=== PATIENT | male | born 1965 | race Caucasian/White ===

== ENCOUNTER 2017-07-26 19:12 | Observation (INO) ==
[~2017-07-26 19:12] MED LIST: Aminoglycoside Consult 1 EACH MC ONE
--- NOTE | 2017-07-26 19:32 | Emergency Department Note ---
Disposition Clinical Impression: Noncompliance with medication regimen Diabetic foot ulcer Qualifiers: Diabetic foot ulcer location: other Diabetes mellitus type: type 2 Laterality: left Non-pressure ulcer stage: unspecified non-pressure ulcer stage Qualified Code(s): E11.621 - Type 2 diabetes mellitus with foot ulcer; L97.529 - Non- pressure chronic ulcer of other part of left foot with unspecified severity; L97.529 - Non-pressure chronic ulcer of other part of left foot with unspecified severity; L97.529 - Non-pressure chronic ulcer of other part of left foot with unspecified severity; L97.529 - Non-pressure chronic ulcer of other part of left foot with unspecified severity Cellulitis Qualifiers: Site of cellulitis: extremity Site of cellulitis of extremity: lower extremity Laterality: left Qualified Code(s): L03.116 - Cellulitis of left lower limb Alcohol intoxication Qualifiers: Complication of substance-induced condition: uncomplicated Qualified Code(s): F10.920 - Alcohol use, unspecified with intoxication, uncomplicated Disposition: Admitted As Inpatient Condition: Good Time of Disposition: 21:03 General Adult HPI - General Chief complaint: ED Extremity Problem,Nontraumatic Stated complaint: Left foot swelling/pain Time Seen by Provider: 07/26/17 19:17 Source: patient Mode of arrival: ambulatory Limitations: no limitations Nursing Notes Reviewed: Yes Vital Signs Reviewed: Yes - History of Present Illness HPI Narrative: 52-year-old male with significant past medical history of hypertension and diabetes presenting to the emergency department with chief complaint of left lower extremity swelling and an open wound. According to the patient he has had this wound on his foot for approximately one month. He has been cleaning it and putting a and D Ointment on it but has not getting any better. Patient states he is a chronic alcoholic and does not take his diabetes medicine or her hypertension medicine. Patient does not remember any specific trauma to the area. Patient does not remember his last tetanus shot. Patient denies fevers, nausea, vomiting, chest pain, shortness of breath. States otherwise feeling fine. Pain Scale: 7 - Related Data Previous Rx's Medication Instructions Recorded Hydrocodone/Acetaminophen [[place] 1 tab PO Q6H PRN #12 tab 05/16/16 5-325 Tablet] Ibuprofen [Motrin] 600 mg PO Q6HR PRN #40 tab MDD 3200 05/16/16 Allergies Allergy/AdvReac Type Severity Reaction Status Date / Time No Known Allergies Allergy Verified 05/16/16 05:12 All systems ED: reviewed and negative except as stated. Constitutional: Denies: fever, chills Eyes: Reports: as per HPI ENT ED: Reports: as per HPI Cardiovascular: Denies: chest pain, palpitations Respiratory: Denies: cough, dyspnea, wheezes Gastrointestinal: Denies: abdominal pain, nausea, vomiting Genitourinary: Reports: as per HPI Musculoskeletal: Reports: as per HPI Integumentary: Reports: other (Ulcer noted over the phone and left inferior aspect of the foot. Callus noted over the right inferior portion of the foot on the left.) Neurological: Reports: as per HPI Psychiatric: Reports: as per HPI Endocrine: Reports: as per HPI Hematological/Lymphatic: Reports: as per HPI Allergic/Immunologic: Reports: as per HPI Past Medical History - Past Medical History Attestation: Yes The following information was validated with the patient. Medical history: Reports: diabetes, hyperlipidemia, hypertension Psychiatric history: Reports: no psych history - Social History Smoking Status: Never smoker Smokeless Tobacco Status: No Alcohol use: Reports: occasionally Drug use: Reports: none Physical Exam - General Limitations: no limitations General appearance: alert, in no apparent distress - Head Head exam: atraumatic, normocephalic, normal inspection - Eye Eye exam: Present: normal appearance - Chest Chest inspection: Present: normal inspection, symmetric chest wall rise. Absent : tenderness - Respiratory Respiratory exam: Present: normal lung sounds bilaterally. Absent: respiratory distress, wheezes - Cardiovascular Cardiovascular exam: Present: regular rate, normal rhythm, normal heart sounds - Abdominal Exam Abdominal exam: Present: soft, Non-Tender. Absent: distention, guarding, rebound - Extremities Exam Extremities exam: Present: normal inspection, full ROM - Neurological Exam Neurological exam: Present: alert, oriented X3 - Psychiatric Psychiatric exam: Present: normal affect, normal mood - Skin Skin exam: Present: other (Ulcer noted over the base of the fifth metatarsal on the inferior aspect of the left foot. It is clean but deep. No discharge or crepitus noted.) Course Course Narrative: 52-year-old male presenting to the emergency department with chief complaint of diabetic ulcer on the left foot. We will obtain basic lab work along with a wound culture and blood cultures. We will x-ray the foot as well to determine the extent of this ulcer. Disposition pending lab results. - Reevaluation(s) Reevaluation #1: X-ray shows no concern for osteomyelitis at this time. Basic lab work within normal limits. We will admit the patient at this time due to multiple comorbid conditions including uncontrolled diabetes and his chronic alcohol use. Concern for poor wound healing as an outpatient. Call to hospitalist has been sent. Time: 20:47 Reevaluation #2: Dr. Brown accepts the patient and would like 2 g of ancef started. Time: 21:00 Vital Signs Temperature 97.6 F 07/26/17 19:13 Pulse Rate 81 07/26/17 19:13 Respiratory Rate 20 07/26/17 19:13 Blood Pressure 169/105 07/26/17 19:13 O2 Sat by Pulse Oximetry 99 07/26/17 19:13 Temperature 97.6 F 07/26/17 19:13 Pulse Rate 81 07/26/17 19:13 Respiratory Rate 20 07/26/17 19:13 Blood Pressure 169/105 07/26/17 19:13 O2 Sat by Pulse Oximetry 99 07/26/17 19:13 Oxygen Delivery Oxygen Delivery Room Air Medical Decision Making - Lab Data Lab results reviewed: Yes I reviewed the patient's lab results. Result diagrams: 07/26/17 19:42 07/26/17 19:42 Lab Results 07/26/17 07/26/17 07/26/17 Range/Units 19:41 19:42 19:42 WBC 5.6 (4.3-11.1) K/mcL RBC 4.66 (4.19-5.50) M/mcL Hgb 14.7 (12.9-16.9) g/dL Hct 42.5 (37.5-50.1) % MCV 91.2 (83.0-100.0) fL MCH 31.5 (28.0-33.3) pg MCHC 34.6 (31.6-35.5) g/dL RDW 11.1 L (11.5-14.5) % Plt Count 204 (140-400) K/mcL MPV 9.1 L (9.4-12.4) fL Immature Gran % 0.2 (0-4) % Seg Neutrophils % 41.8 % Lymphocytes % 45.5 % Monocytes % 9.1 % Eosinophils % 3.0 % Basophils % 0.4 % Neutrophils # 2.4 (1.6-8.9) K/mcL Lymphocytes # 2.6 (0.6-4.6) K/mcL Monocytes # 0.5 (0.0-1.3) K/mcL Eosinophils # 0.2 (0.0-0.6) K/mcL Basophils # 0.0 (0.0-0.2) K/mcL ESR (0-10) mm/hr Sodium 138 (136-145) mEq/L Potassium 4.0 (3.5-4.5) mEq/L Chloride 99 (98-109) mEq/L Carbon Dioxide 28 (19-29) mEq/L BUN 7 L (8-26) mg/dL Creatinine 0.77 (0.72-1.25) mg/dL Est GFR ( Amer) > 60 (> 60) Est GFR (Non-Af Amer) > 60 (> 60) BUN/Creatinine Ratio 9 (6-26) Glucose 248 H (70-99) mg/dL Calculated Osmolality 292 (280-300) Calcium 9.6 (8.6-10.8) mg/dL Total Bilirubin (0.2-1.2) mg/dL Direct Bilirubin (0.0-0.5) mg/dL Indirect Bilirubin (0.0-1.2) mg/dL AST (5-34) Units/L ALT (0-55) Units/L Alkaline Phosphatase (38-126) Units/L Serum Total Protein (6.0-8.3) g/dL Albumin (3.5-5.0) g/dL Globulin (2.4-3.5) g/dL Albumin/Globulin Ratio (1.1-2.2) Urine Color Yellow (Yellow) Urine Clarity Clear (Clear) Urine pH 6.5 (5.0-8.0) pH Units Ur Specific [place] 1.011 (1.010-1.025) Urine Protein Negative (Neg-Trace) mg/dL Urine Glucose (UA) >=1000 H (Normal) mg/dL Urine Ketones Negative (Negative) mg/dL Urine Blood Negative (Negative) Urine Nitrite Negative (Negative) Urine Bilirubin Negative (Negative) Urine Urobilinogen Normal (Normal) mg/dL Ur Leukocyte Esterase Negative (Negative) Ur Culture Indicated? NO (NO) Ethyl Alcohol (0-10) mg/dL 07/26/17 07/26/17 Range/Units 19:42 19:42 WBC (4.3-11.1) K/mcL RBC (4.19-5.50) M/mcL Hgb (12.9-16.9) g/dL Hct (37.5-50.1) % MCV (83.0-100.0) fL MCH (28.0-33.3) pg MCHC (31.6-35.5) g/dL RDW (11.5-14.5) % Plt Count (140-400) K/mcL MPV (9.4-12.4) fL Immature Gran % (0-4) % Seg Neutrophils % % Lymphocytes % % Monocytes % % Eosinophils % % Basophils % % Neutrophils # (1.6-8.9) K/mcL Lymphocytes # (0.6-4.6) K/mcL Monocytes # (0.0-1.3) K/mcL Eosinophils # (0.0-0.6) K/mcL Basophils # (0.0-0.2) K/mcL ESR 50 H (0-10) mm/hr Sodium (136-145) mEq/L Potassium (3.5-4.5) mEq/L Chloride (98-109) mEq/L Carbon Dioxide (19-29) mEq/L BUN (8-26) mg/dL Creatinine (0.72-1.25) mg/dL Est GFR ( Amer) (> 60) Est GFR (Non-Af Amer) (> 60) BUN/Creatinine Ratio (6-26) Glucose (70-99) mg/dL Calculated Osmolality (280-300) Calcium (8.6-10.8) mg/dL Total Bilirubin 0.3 (0.2-1.2) mg/dL Direct Bilirubin 0.1 (0.0-0.5) mg/dL Indirect Bilirubin 0.2 (0.0-1.2) mg/dL AST 24 (5-34) Units/L ALT 23 (0-55) Units/L Alkaline Phosphatase 98 (38-126) Units/L Serum Total Protein 8.2 (6.0-8.3) g/dL Albumin 3.7 (3.5-5.0) g/dL Globulin 4.5 H (2.4-3.5) g/dL Albumin/Globulin Ratio 0.8 L (1.1-2.2) Urine Color (Yellow) Urine Clarity (Clear) Urine pH (5.0-8.0) pH Units Ur Specific [place] (1.010-1.025) Urine Protein (Neg-Trace) mg/dL Urine Glucose (UA) (Normal) mg/dL Urine Ketones (Negative) mg/dL Urine Blood (Negative) Urine Nitrite (Negative) Urine Bilirubin (Negative) Urine Urobilinogen (Normal) mg/dL Ur Leukocyte Esterase (Negative) Ur Culture Indicated? (NO) Ethyl Alcohol 216 H (0-10) mg/dL - Radiology Data Radiology results reviewed: Yes I reviewed the patient's radiology results. Foot X-Ray 07/26/17 19:32 IMPRESSION: Soft tissue defect of the plantar left foot. No radiographic evidence of osteomyelitis at this time. D/ / Tamra Barros Cha, MD / Tamra Barros Cha, MD Interpreting Provider: Tamra Barros Cha, MD Attestation Statement - Attestation Attestation: I examined this patient and my medical decision-making was reviewed with the Resident Physician, Dr. Velazco. I agree with the documented findings, disposition and treatment plan as described except to the extent set forth below. Patient is a 52-year-old white male with a history of chronic alcoholism, diabetes mellitus with medication noncompliance who presents with a diabetic foot ulcer on the left foot which has been gradually worsening over the past month and over the past few days patient has noticed significant soft tissue swelling to the left foot and ankle along with some erythema to the dorsal surface of his left foot that extends along the medial aspect of the foot. Patient with no proximal streaking. No lower leg pain or swelling. Patient's vital signs are stable on arrival, he is in no acute distress. I agree patient's physical exam findings as documented. Patient had an IV saline well-established blood cultures were sent as well as a wound culture from the ulcer site. Patient had a plain film imaging of his left foot and lab evaluation. Patient was found to have an elevation in his sedimentation rate and CRP. Normal white count. Patient is hyperglycemic without acidosis and large glucosuria. Patient is also intoxicated with an elevated blood alcohol, patient and states he drinks daily. Patient's plain film x-ray does show gas within the ulcer but no evidence of osteomyelitis or bony fracture. IV antibiotics were initiated and we will admit the patient for further evaluation of his left foot cellulitis secondary to diabetic foot ulcer, hyperglycemia, acute alcohol intoxication, medication noncompliance. Patient remained hemodynamically stable here in the ED.
[2017-07-26] MEDS ORDERED: Td (TENIVAC) Vaccine 0.5 ML VIAL IM ONE (19:43)
[2017-07-26 19:52] LABS: Basophils % 0.4 %; Eosinophils # 0.2 K/mcL (0.0-0.6); Hematocrit 42.5 % (37.5-50.1); Hemoglobin 14.7 g/dL (12.9-16.9); Immature Granulocytes % 0.2 % (0-4); Lymphocytes # 2.6 K/mcL (0.6-4.6); Lymphocytes % 45.5 %; Mean Corpuscular HGB Conc 34.6 g/dL (31.6-35.5); Mean Corpuscular Hemoglobin 31.5 pg (28.0-33.3); Mean Corpuscular Volume 91.2 fL (83.0-100.0); Mean Platelet Volume 9.1 fL (9.4-12.4); Monocytes # 0.5 K/mcL (0.0-1.3); Monocytes % 9.1 %; Neutrophils # 2.4 K/mcL (1.6-8.9); Platelet Count 204 K/mcL (140-400); Red Blood Count 4.66 M/mcL (4.19-5.50); Red Cell Distribution Width 11.1 % (11.5-14.5); Segmented Neutrophils % 41.8 %
[2017-07-26 19:55] LABS: Bilirubin,Urine Negative (Negative); Blood,Urine Negative (Negative); Clarity,Urine Clear (Clear); Color,Urine Yellow (Yellow); Glucose,Urine (UA) >=1000 mg/dL (Normal); Ketones,Urine Negative (Negative); Leukocyte Esterase,Urine Negative (Negative); Nitrite,Urine Negative (Negative); PH,Urine 6.5 pH Units (5.0-8.0); Protein,Urine Negative (Neg-Trace); Specific Gravity,Urine 1.011 (1.010-1.025); Urobilinogen,Urine Normal (Normal)
[2017-07-26 20:04] LABS: BUN/Creatinine Ratio 9 (6-26); Blood Urea Nitrogen 7 mg/dL (8-26); Calcium 9.6 mg/dL (8.6-10.8); Carbon Dioxide 28 mEq/L (19-29); Chloride 99 mEq/L (98-109); Glucose 248 mg/dL (70-99); Osmolality,Calculated 292 (280-300); Sodium 138 mEq/L (136-145); eGFR For African Americans > 60 (> 60); eGFR For Non-African Americans > 60 (> 60)
[2017-07-26 20:05] LABS: Albumin 3.7 g/dL (3.5-5.0); Albumin/Globulin Ratio 0.8 (1.1-2.2); Bilirubin,Direct 0.1 mg/dL (0.0-0.5); Bilirubin,Indirect 0.2 mg/dL (0.0-1.2); Bilirubin,Total 0.3 mg/dL (0.2-1.2); Globulin 4.5 g/dL (2.4-3.5); Total Protein 8.2 g/dL (6.0-8.3)
[2017-07-26] MEDS ORDERED: ceFAZolin 2,000 MG in D5% in Water 100 ML IVPB ONE (20:59)
[2017-07-26] MEDS ORDERED: Acetaminophen 325 MG TABLET PO PRN (23:19)
[2017-07-26] MEDS ORDERED: *HR* Morphine 2 MG/ML SYRINGE IVP PRN (23:19)
[2017-07-26] MEDS ORDERED: Ondansetron 4 MG/2 ML VIAL IVP PRN (23:19)
[2017-07-26] MEDS ORDERED: Naloxone 0.4 MG/ML INJ IVP PRN (23:19)
[2017-07-26] MEDS ORDERED: Dextrose Gel 15 GM PO PRN ×2 (23:23)
[2017-07-26] MEDS ORDERED: *HR* Dextrose 50 % in Water (Syg) 50 ML SYRINGE IVP PRN (23:23)
[2017-07-26] MEDS ORDERED: D5% in Water 1,000 ML IVC PRN (23:23)
[2017-07-26] MEDS ORDERED: *HR* LORazepam 2 MG/ML VIAL IVP PRN (23:25)
--- NOTE | 2017-07-26 23:27 | Internal Med History&Physical ---
Date of Encounter: 07/26/17 Time of Encounter: 23:15 Assessment and Plan (1) Cellulitis Current visit: Yes Status: Acute Acute cellulitis of left foot with diabetic foot ulcer - likely due to injury Continue IV fluids, empiric IV Zosyn, IV Vancomycin, IV Morphine PRN pain Left foot x-ray - soft tissue defect containing gas along plantar aspect of the left foot at the level of metatarsal phalangeal joints, no evidence of osteomyelitis WBC - 5.6 Cultures - pending Podiatry consult - Dr. Duong Cardiac telemetry, wound care, labs in a.m., monitor closely Qualifiers: Site of cellulitis: extremity Site of cellulitis of extremity: lower extremity Laterality: left Qualified Code(s): L03.116 - Cellulitis of left lower limb (2) Diabetic foot ulcer Current visit: Yes Status: Acute Diabetic foot ulcer on the left foot plantar aspect - likely secondary to injury and diabetic neuropathy Continue wound care, podiatry consult Patient needs good blood glucose control Left foot x-ray - reviewed Qualifiers: Diabetic foot ulcer location: other Diabetes mellitus type: type 2 Laterality: left Non-pressure ulcer stage: unspecified non-pressure ulcer stage Qualified Code(s): E11.621 - Type 2 diabetes mellitus with foot ulcer; L97.529 - Non-pressure chronic ulcer of other part of left foot with unspecified severity; L97.529 - Non-pressure chronic ulcer of other part of left foot with unspecified severity; L97.529 - Non-pressure chronic ulcer of other part of left foot with unspecified severity; L97.529 - Non-pressure chronic ulcer of other part of left foot with unspecified severity (3) Alcohol abuse Current visit: Yes Status: Chronic History of chronic alcohol abuse - patient states he drinks at least 12 pack of beer daily Alcohol level - 216 Continue IV fluids, IV thiamine, IV folic acid CIWA protocol, IV Ativan as needed for withdrawal (4) Diabetes mellitus Current visit: Yes Status: Chronic Type 2 diabetes mellitus, [id number], hyperglycemia - with diabetic foot ulcer and diabetic neuropathy Continue insulin sliding scale, glucose checks HbA1c - pending Qualifiers: Diabetes mellitus type: type 2 Diabetes mellitus complication status: with skin complications Diabetes mellitus complication detail: with foot ulcer Diabetes mellitus longterm insulin use: without superintendent [employer] use Qualified Code( s): E11.621 - Type 2 diabetes mellitus with foot ulcer; L97.509 - Non-pressure chronic ulcer of other part of unspecified foot with unspecified severity; L97.509 - Non-pressure chronic ulcer of other part of unspecified foot with unspecified severity; L97.509 - Non-pressure chronic ulcer of other part of unspecified foot with unspecified severity; L97.509 - Non-pressure chronic ulcer of other part of unspecified foot with unspecified severity (5) Hyperlipidemia Current visit: Yes Status: Chronic Hyperlipidemia - not on any meds at home Add Zocor Qualifiers: Hyperlipidemia type: unspecified Qualified Code(s): E78.5 - Hyperlipidemia , unspecified (6) Hypertension Current visit: Yes Status: Chronic Essential hypertension, uncontrolled, monitor Add Lisinopril/HCTZ, IV hydralazine as needed Qualifiers: Hypertension type: essential hypertension Qualified Code(s): I10 - Essential (primary) hypertension (7) DVT prophylaxis Current visit: Yes Status: Acute Continue heparin subcutaneous Internal Medicine - H&P: HPI Chief complaint: Left foot pain and swelling Admitted From: Emergency Dept Plans for Post Hospital Care: Home History of present illness: Mr. Stein is a 52 year old male with past medical history of hypertension, diabetes, hyperlipidemia and history of alcohol abuse. Patient presents to the ED with complaints of pain and swelling of her left foot and wound over left foot. Examined in the room. Patient is awake and alert. Not in any distress. Able to provide all history. No family members at bedside. Patient complains of pain and swelling over left foot with an open wound on the plantar aspect. He states the wound on his foot has been present for almost one month. He states he has been cleaning it and applying antibiotic ointment on it, but it seems to be getting worse. Patient states he is a diabetic and is supposed to be on Glucophage, but does not take it. He also states he does not take any of his blood pressure medications. States that he has not followed up with his PCP, and is scheduled to see a new PCP in September of this year. He decided to come into the ED today because one of his neighbors looked at his foot and stated that the wound seems to be slowly getting worse and advised him to go to the ER. Pain is aggravated with weightbearing. No alleviating factors. Rates the pain 6 out of 10 and says it is constant dull pain. No other associated symptoms. Patient denies chest pain or shortness of breath or dizziness or vomiting. Denies fever or abdominal pain or diarrhea No other acute complaints. Initial workup in the ED significant for elevated blood glucose and elevated blood alcohol level. X-ray of the left foot shows soft tissue defect containing gas along the plantar aspect of the left foot at the level of metatarsal phalangeal joints. No evidence of osteomyelitis at this time. Patient will need IV antibiotics and IV fluids. Podiatry consultation pending. He will need insulin coverage for hyperglycemia. Patient will be on alcohol withdrawal protocol. He will also be on IV thiamine and folic acid. Patient has been explained about his condition and plan of care. He understood and agreed. No unanswered questions. CODE STATUS full code. Past Med Surg Social Fam HX - Past Medical History Medical history: diabetes, hyperlipidemia, hypertension Psychiatric history: no psych history - Past Surgical History Surgical History: non-contributory - Social History Smoking Status: Never smoker Smokeless Tobacco Status: No Alcohol use: occasionally, heavy (Patient drinks 12 pack of beer daily) Drug use: none - Family History Mother Adopted: No (Diabetes) Hx Family GI Disorders: Yes Internal Medicine - H&P: Meds Hydrocodone/Acetaminophen [[place] 5-325 Tablet] 1 tab PO Q6H PRN #12 tab [Rx] Ibuprofen [Motrin] 600 mg PO Q6HR PRN #40 tab MDD 3200 05/16/16 [Rx] 3 Allergy/AdvReac Type Severity Reaction Status Date / Time No Known Allergies Allergy Verified 05/16/16 05:12 All Systems PM: A 10-system review of systems was performed and is negative for pertinent findings except as documented above in the HPI. - Constitutional Constitutional: fatigue, no fever(s), no weakness - EENT Eyes: no blurry vision - Cardiovascular Cardiovascular ROS IM: no chest pain, no claudication, no diaphoresis, no dyspnea, no dyspnea on exertion, no edema, no lightheadedness, no orthopnea, no palpitations, no syncope - Respiratory Respiratory: no cough, no dyspnea, no hemoptysis, no dyspnea on exertion, no wheezing, no chest congestion - Gastrointestinal Gastrointestinal: no abdominal pain, no bloating, no cramping, no diarrhea, no hematemesis, no hematochezia, no nausea, no vomiting - Genitourinary Genitourinary ROS male: no dysuria - Musculoskeletal Additional comments: Left foot pain and swelling. Wound over left foot plantar aspect. - Neurological Neurological ROS: no abnormal gait, no confusion, no dizziness, no focal weakness, no numbness, no tingling - Constitutional Vitals: Temp Pulse Resp BP Pulse Ox 98.0 F 70 16 155/89 94 07/26/17 22:44 07/26/17 22:44 07/26/17 22:44 07/26/17 22:44 07/26/17 22:44 General appearance: Present: cooperative, A&O X 3, pleasant, no acute distress, answers questions appropriately - Head Head exam: Present: atraumatic - Eye Eye exam: Present: EOMI - ENT ENT exam: Present: mucous membranes dry - Respiratory Respiratory exam: Present: CTAB. Absent: chest wall tenderness, rales, rhonchi , wheezes, tachypnea - Cardiovascular Cardiovascular exam: Present: RRR, +S1, +S2 - GI/Abdominal GI/Abdominal exam: Present: soft. Absent: distended, firm, guarding, tenderness - Extremities Exam Extremities exam: Present: radial pulses palpable and symmetrical. Absent: calf tenderness, cyanotic Additional comments: Swelling over left foot medial and lateral aspect and plantar aspect. Wound over plantar aspect of left foot. No drainage. Tenderness over left foot. - Neurological Exam Neurological exam: Present: alert, oriented X3, no focal deficits. Absent: facial droop, speech deficit Internal Med - H&P Results - Labs CBC & Chem 7: 07/26/17 19:42 07/26/17 19:42
[2017-07-26] MEDS ORDERED: Thiamine (B-1) 100 MG, Folic Acid 1 MG, MVI, adult with vitamin K 10 ML in 0.9 % Sodi... IVPB SCH (23:30)
[2017-07-27] MEDS: 0.9 % Sodium Chloride 1,000 ML IVC SCH ×2 (00:46→15:08)
[2017-07-27] MEDS: Piperacillin/Tazobactam 3.375 GM in D5% in Water (Mini-Bag+) 100 ML IVPB SCH ×3 (00:47→15:07)
[2017-07-27] MEDS: Insulin LISPRO 300 UNITS/3 ML VIAL SQ SCH ×3 (00:57→12:33)
[2017-07-27] MEDS ORDERED: Vancomycin 1,500 MG in D5% in Water 250 ML IVPB SCH (01:00)
[2017-07-27 05:08] LABS: INR 1.1; Prothrombin Time 11.6 Seconds (9.4-12.1)
[2017-07-27 05:10] LABS: Basophils % 0.4 %; Eosinophils # 0.1 K/mcL (0.0-0.6); Eosinophils % 2.5 %; Hematocrit 39.6 % (37.5-50.1); Hemoglobin 14.1 g/dL (12.9-16.9); Immature Granulocytes % 0.2 % (0-4); Lymphocytes # 1.2 K/mcL (0.6-4.6); Lymphocytes % 23.8 %; Mean Corpuscular HGB Conc 35.6 g/dL (31.6-35.5); Mean Corpuscular Volume 89.8 fL (83.0-100.0); Mean Platelet Volume 9.5 fL (9.4-12.4); Monocytes # 0.4 K/mcL (0.0-1.3); Neutrophils # 3.2 K/mcL (1.6-8.9); Platelet Count 183 K/mcL (140-400); Red Blood Count 4.41 M/mcL (4.19-5.50); Segmented Neutrophils % 65.1 %
[2017-07-27 05:18] LABS: BUN/Creatinine Ratio 11 (6-26); Blood Urea Nitrogen 8 mg/dL (8-26); Calcium 9.1 mg/dL (8.6-10.8); Carbon Dioxide 26 mEq/L (19-29); Chloride 101 mEq/L (98-109); Chol/HDL Ratio 4.6 (0-4.9); Cholesterol 205 mg/dL (< 200); Glucose 230 mg/dL (70-99); HDL Cholesterol 45 mg/dL (40-59); LDL Cholesterol,Calculated 127 mg/dL (0-99); Osmolality,Calculated 290 (280-300); Potassium 3.8 mEq/L (3.5-4.5); Sodium 137 mEq/L (136-145); Triglycerides 163 mg/dL (< 150); eGFR For African Americans > 60 (> 60); eGFR For Non-African Americans > 60 (> 60)
[2017-07-27] MEDS ORDERED: Famotidine 20 MG/2 ML VIAL IVP SCH (06:00)
[2017-07-27] MEDS ORDERED: Vancomycin 1,000 MG in D5% in Water 250 ML IVPB SCH (06:00)
[2017-07-27] MEDS ORDERED: *HR* Heparin 5,000 UNIT/ML VIAL SQ SCH (06:00)
[2017-07-27] MEDS ORDERED: Aspirin 81 MG TAB.CHEW PO SCH (09:00)
--- NOTE | 2017-07-27 12:39 | Podiatry Consult Note ---
Date of Encounter: 07/27/17 Time of Encounter: 12:00 Assessment and Plan (1) Diabetic foot ulcer Current visit: Yes Status: Acute I had a thorough review with the patient regarding his history/condition, my findings, and recommendations for treatment. We discussed his diabetic foot ulceration and infection. Comparing his foot currently to the picture on his phone the cellulitis appears to have resolved. Excisional debridement of the left foot wound was performed as below. We discussed healing of the ulceration and importance of glycemic control. The hospitalist was present for this discussion. And it was explained to the patient that with a high blood sugar and an A1c averaging 9% that his wound cannot effectively heal and he is at an increased risk for developement of infection that could lead to partial foot or limb loss. Any time ambulating needs to be in diabetic offloading boot. Daily dressing changes with silvadene. If cannot accommodate him wearing boot at work he will have to temporarily be out of work. Hospitalist will discharge on PO abx for a week and with follow up for me in one week. I discussed with the patient signs of infection to watch out for redness, swelling, fever, chills, etc. He will be performing daily wound care at home with silvadene 1% topical on the wound, 4x4 gauze, and isac. Follow up in 1 week. left plantar foot submet 4 ulceration cleasned with alcohol. A #10 blade was used to excisionally debride the hyperkeratotic tissue and wound base down to healthy bleeding granular base. Adequate hemostasis was present. Excisional debridement took place through subcutaneous tissue. 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 Stein is a 52 year old diabetic male with a left foot ulcer. His is bedside. They say there was a callus present for a couple months and he picked off the callus and there was drainage underneath and an open wound. They say he came to the ED yesterday because his foot was red and swollen. They have a picture on his phone. Denies f/c/n/v. He says the redness and swelling have disappeared since getting the IV antibiotics. He says he does not have pain in the foot but he also does not have much feeling in the foot. Podiatry consulted for evaluation of the left foot ulceration. Patient's relates her does not take his diabetic medications. He is not on insulin currently. Past Med Surg Social Fam HX - Past Medical History Medical history: diabetes, hyperlipidemia, hypertension Psychiatric history: no psych history - Past Surgical History Surgical History: non-contributory - Social History Smoking Status: Never smoker Smokeless Tobacco Status: No Alcohol use: occasionally, heavy (Patient drinks 12 pack of beer daily) Drug use: none - Family History Mother Adopted: No (Diabetes) Hx Family GI Disorders: Yes Medications and Allergies No Known Home Drugs 07/27/17 [History] 3 Allergy/AdvReac Type Severity Reaction Status Date / Time No Known Allergies Allergy Verified 05/16/16 05:12 All Systems Reviewed: A 10-system review of systems was performed and is negative for pertinent findings except as documented above in the HPI. - Constitutional Constitutional: no fever(s) - Cardiovascular Cardiovascular: no chest pain, no dyspnea - Respiratory Respiratory: no dyspnea - Musculoskeletal Musculoskeletal: as per HPI Physical Exam - Constitutional Vitals: Temp Pulse Resp BP Pulse Ox 98.4 F 94 16 112/72 96 07/27/17 11:01 07/27/17 11:01 07/27/17 11:01 07/27/17 11:01 07/27/17 11:01 Exam: well developed and nourished male in no acute distress Vasc: CFT < 3 sec x 5 digits left foot. left foot warm to touch. + pedal hairgrowth. DP palpable. minimal edema left foot. Derm: left foot ulceration plantar foot submet 4 with hyperkeratotic rim and 60 % granular base 40% fibrotic measures 1cmx1.4cmx0.3cm. does not probe to bone or tendon. no purulence. no fluctuance. there is no erythema of the left foot plantarly or dorsally. Musc: no pain with palpation left foot. no pain with left foot/ankle ROM. Neuro: sensation absent to light touch. xray- soft tissue air in area of the ulceration, there is no soft tissue emphysema. no signs of cortical destruction. Results - Labs Result Diagrams: 07/27/17 04:37 07/27/17 04:37 Labs: Abnormal lab results MCHC 35.6 g/dL (31.6-35.5) H 07/27/17 04:37 RDW 11.0 % (11.5-14.5) L 07/27/17 04:37 ESR 50 mm/hr (0-10) H 07/26/17 19:42 Glucose 230 mg/dL (70-99) H 07/27/17 04:37 POC Glucose 164 (58-89) H 07/27/17 06:31 Hemoglobin A1c 9.0 % (-5.6) H 07/27/17 04:37 Globulin 4.5 g/dL (2.4-3.5) H 07/26/17 19:42 Albumin/Globulin Ratio 0.8 (1.1-2.2) L 07/26/17 19:42 Triglycerides 163 mg/dL (< 150) H 07/27/17 04:37 Cholesterol 205 mg/dL (< 200) H 07/27/17 04:37 LDL Cholesterol, Calc 127 mg/dL (0-99) H 07/27/17 04:37 VLDL Cholesterol, Calc 33 mg/dL (< 31) H 07/27/17 04:37 Urine Glucose (UA) >=1000 mg/dL (Normal) H 07/26/17 19:41 Ethyl Alcohol 216 mg/dL (0-10) H 07/26/17 19:42 H & H 07/27/17 Range/Units 04:37 Hgb 14.1 (12.9-16.9) g/dL Hct 39.6 (37.5-50.1) % All other labs normal. Consult Discharge Plan - Plan Referrals: Titus zarate MD [Primary Care Provider] -
[2017-07-27] MEDS ORDERED: Silver Sulfadiazine 50 GM TUBE TP SCH (12:45)
[2017-07-27 15:28] VITALS: BP 138/87
--- NOTE | 2017-07-27 16:03 | Discharge Summary ---
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; L97.422 - Non-pressure chronic ulcer of left heel and midfoot with fat layer exposed; L97.422 - Non-pressure chronic ulcer of left heel and midfoot with fat layer exposed; L97.422 - Non-pressure chronic ulcer of left heel and midfoot with fat layer exposed (2) Cellulitis Priority: Primary Status: Acute Qualifiers: Site of cellulitis: extremity Site of cellulitis of extremity: lower extremity Laterality: left Qualified Code(s): L03.116 - Cellulitis of left lower limb (3) Hyperlipidemia Priority: Secondary Status: Chronic Qualifiers: Hyperlipidemia type: unspecified Qualified Code(s): E78.5 - Hyperlipidemia , unspecified (4) Hypertension Priority: Secondary Status: Chronic Qualifiers: Hypertension type: essential hypertension Qualified Code(s): I10 - Essential (primary) hypertension (5) Diabetes mellitus Priority: Secondary Status: Chronic Qualifiers: Diabetes mellitus type: type 2 Diabetes mellitus complication status: with skin complications Diabetes mellitus complication detail: with foot ulcer 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 usp use Qualified Code( s): E11.621 - Type 2 diabetes mellitus with foot ulcer; L97.509 - Non-pressure chronic ulcer of other part of unspecified foot with unspecified severity; L97.509 - Non-pressure chronic ulcer of other part of unspecified foot with unspecified severity; L97.509 - Non-pressure chronic ulcer of other part of unspecified foot with unspecified severity; L97.509 - Non-pressure chronic ulcer of other part of unspecified foot with unspecified severity - Discharge Medications Prescriptions: Aspirin 81 mg PO DAILY #30 tab.chew Ciprofloxacin HCl [Cipro] 500 mg PO BID #20 tablet Lisinopril-HCTZ 10-12.5 [Prinzide 10-12.5] 1 each PO DAILY #30 tablet metFORMIN [Glucophage] 1,000 mg PO BIDWM #60 tablet Silver Sulfadiazine [Silvadene] 1 appl TP DAILY #1 tube Simvastatin [Zocor] 20 mg PO HS #30 tablet Home Medications: Aspirin 81 mg PO DAILY #30 tab.chew 07/27/17 [Rx] Ciprofloxacin HCl [Cipro] 500 mg PO BID #20 tablet 07/27/17 [Rx] Lisinopril-HCTZ 10-12.5 [Prinzide 10-12.5] 1 each PO DAILY #30 tablet 07/27/17 [ Rx] Silver Sulfadiazine [Silvadene] 1 appl TP DAILY #1 tube 07/27/17 [Rx] Simvastatin [Zocor] 20 mg PO HS #30 tablet 07/27/17 [Rx] metFORMIN [Glucophage] 1,000 mg PO BIDWM #60 tablet 07/27/17 [Rx] Allergies/Adverse Reactions: 3 Allergy/AdvReac Type Severity Reaction Status Date / Time No Known Allergies Allergy Verified 05/16/16 05:12 Date of admission: 07/26/17 23:19 Primary care physician: Titus Velásquez MD Consults: 07/26/17 23:22 Consult to Podiatry [CONS] Routine Consulting Provider: [facility] Reason for Consult: diabetic foot ulcer Call Completed: No - Patient Status Disposition: Home, Self-Care Condition: Good - Discharge Instructions Follow Up With: Titus Velásquez MD [Primary Care Provider] - Additional Instructions: Follow-up appointments: If there is not an appointment listed below, please call your physician and schedule a follow-up appointment. If you have congestive heart failure and your symptoms return, make an appointment with your physician. Medication List: Carry an up to date list of medications you are taking at all time. We have given you an updated medication list including any new medications that you have been prescribed. Please provide that list to your primary provider Symptoms: If your condition changes or you experience any of the following symptoms, notify your physician immediately: Unusual or worsening pain, fever, persistent nausea and vomiting, bleeding, increase in swelling (especially in your legs), sudden weight gain, extreme dizziness, chest pain, increased drainage or redness from a wound or incision. Go to the emergency department if you experience a problem with breathing. Weights: If you have a history of swelling or shortness of breath, weigh yourself daily and notify your physician if you have a weight gain of two or more pounds in one day or 5 or more pounds in a week. If you experience any of the warning signs for stroke: Sudden numbness or weakness of the face, arm or leg; especially on one side of the body, sudden confusion, trouble speaking or understanding, sudden trouble seeing in one or both eyes, sudden trouble walking, dizziness, loss of balance or coordination, sudden sever headache with no cause; Call 911 or go to the emergency room. Stroke is a medical emergency. Some risk factors for stroke: Age, cigarette smoking, diabetes, excessive alcohol consumption, family history , high blood pressure, overweight, physical inactivity, prior stroke, heart attack, diagnosis of carotid artery stenosis or other artery disease. If you smoke, STOP: Smoking or tobacco use significantly increases your risk of heart and lung disease. Your chance of disease greatly increases if you continue to smoke. For more information, call the [employer] quit line for smoking cessation 0-NOW ( ) Hospital course: Patient is a 52 year old male with past medical history significant for hypertension, diabetes, hyperlipidemia and history of alcohol abuse, who presented to the ER on 07/26/17 with pain and swelling of his left foot and wound over left foot. Patient reported that wound on his foot had been present for approximately one month. He had been cleaning it and applying antibiotic ointment on it without any improvement. Patient admits to being noncompliant with management for diabetes, cholesterol and hypertension as he has not been taking any medications at all. In the ER, X-ray of the left foot showed soft tissue defect containing gas along the plantar aspect of the left foot at the level of metatarsal phalangeal joints; no evidence of osteomyelitis at this time. He was admitted to medical floor for further management. During patients hospital stay, podiatry was consult with recommendations for daily wound care at home with silvadene 1% topical on the wound, 4x4 gauze, and isac and to follow-up with podiatry in 1 week. Patient will also be discharged to take a 10 day course of ciprofloxacin. - Time Spent with Patient Total time spent providing and/or coordinating discharge services: Less than 30 minutes - Constitutional Vitals: Temp Pulse Resp BP Pulse Ox 98.2 F 90 16 138/87 98 07/27/17 15:24 07/27/17 15:24 07/27/17 15:24 07/27/17 15:24 07/27/17 15:24 General appearance: Present: cooperative, A&O X 3, pleasant, no acute distress, answers questions appropriately - Respiratory Respiratory exam: Present: CTAB. Absent: accessory muscle use, rales, rhonchi, wheezes - Cardiovascular Cardiovascular exam: Present: RRR, +S1, +S2. Absent: diastolic murmur, gallop, rubs, systolic murmur - VTE Reasons for not Prescribing Prophylaxis: Treatment not Indicated - Low risk for VTE
== END 2017-07-27 17:05 | disposition home or self-care (01) ==
LOC: EMEROO 19:12 → 3BNU 19:12
PROVIDERS: ADMIT Internal Medicine; ATTEND Registered Nurse

== ENCOUNTER 2020-01-14 22:29 | Observation (INO) ==
[2020-01-14] MEDS ORDERED: 0.9 % Sodium Chloride 1,000 ML IVC ONE (23:13)
[2020-01-14 23:35] LABS: Bilirubin,Urine Negative (Negative); Blood,Urine Negative (Negative); Clarity,Urine Clear (Clear); Color,Urine Yellow (Yellow); Glucose,Urine (UA) >=1000 mg/dL (Normal); Ketones,Urine Negative (Negative); Leukocyte Esterase,Urine Negative (Negative); Nitrite,Urine Negative (Negative); Protein,Urine Negative (Neg-Trace); Specific Gravity,Urine 1.011 (1.010-1.025); Urobilinogen,Urine Normal (Normal)
[2020-01-14 23:38] LABS: Basophils # 0.1 K/mcL (0.0-0.2); Basophils % 1.2 %; Eosinophils # 0.2 K/mcL (0.0-0.6); Eosinophils % 4.8 %; Hematocrit 41.4 % (37.5-50.1); Hemoglobin 14.5 g/dL (12.9-16.9); Lymphocytes % 49.2 %; Mean Corpuscular Hemoglobin 31.5 pg (28.0-33.3); Mean Platelet Volume 9.2 fL (9.4-12.4); Monocytes # 0.4 K/mcL (0.0-1.3); Monocytes % 10.4 %; Neutrophils # 1.4 K/mcL (1.6-8.9); Platelet Count 178 K/mcL (140-400); Segmented Neutrophils % 34.4 %; White Blood Count 4.1 K/mcL (4.3-11.1)
[2020-01-14 23:58] LABS: Acetaminophen < 10 mcg/mL (10-20); Alanine Aminotransferase 21 Units/L (7-52); Albumin 4.5 g/dL (3.5-5.7); Albumin/Globulin Ratio 1.5 (1.1-2.2); Alkaline Phosphatase 53 Units/L (34-104); Aspartate Amino Transferase 18 Units/L (13-39); BUN/Creatinine Ratio 14 (6-26); Bilirubin,Direct 0.3 mg/dL (0.0-0.2); Bilirubin,Indirect 0.7 mg/dL (0.0-1.0); Blood Urea Nitrogen 9 mg/dL (6-20); Calcium 9.6 mg/dL (8.6-10.3); Carbon Dioxide 21 mEq/L (23-29); Chloride 100 mEq/L (98-107); Ethanol 283 mg/dL (Less than 10); Glucose 200 mg/dL (70-105); Osmolality,Calculated 280 (280-300); Potassium 3.7 mEq/L (3.5-5.1); Salicylate < 2.5 mg/dL (15.0-30.0); Sodium 133 mEq/L (136-145); Total Protein 7.5 g/dL (6.4-8.9); eGFR For African Americans > 60 (> 60); eGFR For Non-African Americans > 60 (> 60)
[2020-01-15 00:19] LABS: Amphetamine Screen,Urine Negative ng/mL (Cutoff=1000); Barbiturate Screen,Urine Negative ng/mL (Cutoff=200); Benzodiazepines Screen,Urine Negative ng/mL (Cutoff=200); Cannabinoid Screen,Urine Negative ng/mL (Cutoff = 50); Cocaine Screen,Urine Negative ng/mL (Cutoff= 300); Opiate Screen,Urine Negative ng/mL (Cutoff=300); Phencyclidine Screen,Urine Negative ng/mL (Cutoff=25)
[2020-01-15] MEDS ORDERED: *HR* LORazepam 2 MG/ML VIAL IVP PRN ×3 (01:19)
[2020-01-15] MEDS ORDERED: 0.9 % Sodium Chloride 1,000 ML IVC ONE (02:13)
[2020-01-15] MEDS ORDERED: Naloxone 0.4 MG/ML INJ IVP PRN (03:01)
[2020-01-15] MEDS ORDERED: Dextrose Gel 15 GM/37.5 ML TUBE PO PRN ×2 (03:02)
[2020-01-15] MEDS ORDERED: *HR* Dextrose 50 % in Water (Syg) 50 ML SYRINGE IVP PRN (03:02)
[2020-01-15] MEDS ORDERED: D5% in Water 1,000 ML IVC PRN (03:02)
[2020-01-15] MEDS ORDERED: Insulin LISPRO 300 UNITS/3 ML VIAL SQ SCH (03:15)
[2020-01-15 03:39] LABS: Basophils % 0.5 %; Eosinophils # 0.2 K/mcL (0.0-0.6); Eosinophils % 4.8 %; Hemoglobin 13.6 g/dL (12.9-16.9); Immature Granulocytes % 0.3 % (0-4); Lymphocytes # 1.8 K/mcL (0.6-4.6); Lymphocytes % 47.1 %; Mean Corpuscular Hemoglobin 31.3 pg (28.0-33.3); Mean Corpuscular Volume 92.2 fL (83.0-100.0); Mean Platelet Volume 9.2 fL (9.4-12.4); Monocytes # 0.4 K/mcL (0.0-1.3); Monocytes % 10.6 %; Neutrophils # 1.4 K/mcL (1.6-8.9); Platelet Count 167 K/mcL (140-400); Red Blood Count 4.34 M/mcL (4.19-5.50); Segmented Neutrophils % 36.7 %; White Blood Count 3.8 K/mcL (4.3-11.1)
[2020-01-15 03:57] LABS: BUN/Creatinine Ratio 13 (6-26); Blood Urea Nitrogen 10 mg/dL (6-20); Calcium 8.6 mg/dL (8.6-10.3); Carbon Dioxide 20 mEq/L (23-29); Chloride 106 mEq/L (98-107); Glucose 179 mg/dL (70-105); Magnesium 1.5 mg/dL (1.6-2.6); Osmolality,Calculated 286 (280-300); Phosphorous 4.7 mg/dL (2.7-4.5); Potassium 3.6 mEq/L (3.5-5.1); Sodium 136 mEq/L (136-145); eGFR For African Americans > 60 (> 60); eGFR For Non-African Americans > 60 (> 60)
[2020-01-15] MEDS ORDERED: *HR* Heparin 5,000 UNIT/ML VIAL SQ SCH (06:00)
[2020-01-15] MEDS: 0.9 % Sodium Chloride 1,000 ML IVC SCH ×4 (06:41→11:57)
[2020-01-15] MEDS: Insulin LISPRO 300 UNITS/3 ML VIAL SQ SCH ×2 (07:50→12:10)
[2020-01-15] MEDS ORDERED: Vitamin B Complex/Vit C/Vit E 1 EACH TABLET PO SCH (09:00)
[2020-01-15] MEDS ORDERED: Folic Acid 1 MG TABLET PO SCH (09:00)
[2020-01-15] MEDS ORDERED: Thiamine (B-1) 100 MG TABLET PO SCH (09:00)
[2020-01-15 11:46] VITALS: BP 143/82
== END 2020-01-15 12:50 | disposition left against medical advice (07) ==
LOC: 3BNU 22:29 → EMEROOARM 22:29 → 3BNU 01-15 01:09
PROVIDERS: ADMIT Family Medicine; ATTEND Family Medicine

== ENCOUNTER 2021-10-19 10:25 | Inpatient (IN) ==
[2021-10-19 10:54] LABS: Red Cell Distribution Width 12.5 % (11.5-14.5)
[2021-10-19 10:55] LABS: Eosinophils # 0.2 K/mcL (0.0-0.6); Monocytes # 0.9 K/mcL (0.0-1.3)
[2021-10-19 11:14] LABS: BUN/Creatinine Ratio 15 (6-26); Blood Urea Nitrogen 11 mg/dL (6-20); Calcium 9.4 mg/dL (8.6-10.3); Carbon Dioxide 25 mEq/L (23-29); Chloride 99 mEq/L (98-107); Glucose 198 mg/dL (70-105); Osmolality,Calculated 277 (280-300); Potassium 4.1 mEq/L (3.5-5.1); Sodium 131 mEq/L (136-145); eGFR For African Americans > 60 (> 60); eGFR For Non-African Americans > 60 (> 60)
[2021-10-19] MEDS ORDERED: Piperacillin/Tazobactam 3.375 GM in 0.9 % Sodium Chloride Mini Bag 100 ML IVPB ONE (11:20)
[2021-10-19] MEDS ORDERED: Vancomycin 2,000 MG/520 ML IV.SOLN IVPB ONE (11:20)
[2021-10-19 11:26] LABS: Basophils % 0.3 %; Eosinophils % 1.5 %; Hematocrit 39.2 % (37.5-50.1); Hemoglobin 12.8 g/dL (12.9-16.9); INR 1.4; Immature Granulocytes % 0.6 % (0-4); Lymphocytes # 1.1 K/mcL (0.6-4.6); Mean Corpuscular HGB Conc 32.7 g/dL (31.6-35.5); Mean Corpuscular Hemoglobin 28.8 pg (28.0-33.3); Mean Corpuscular Volume 88.1 fL (83.0-100.0); Mean Platelet Volume 9.6 fL (9.4-12.4); Monocytes % 6.8 %; Platelet Count 323 K/mcL (140-400); Prothrombin Time 15.5 Seconds (9.4-12.1); Red Blood Count 4.45 M/mcL (4.19-5.50); Segmented Neutrophils % 82.8 %; White Blood Count 13.1 K/mcL (4.3-11.1)
[2021-10-19 11:27] LABS: Neutrophils # 10.9 K/mcL (1.6-8.9)
[2021-10-19 11:29] LABS: Activated Partial Thrombo Time 36.5 Seconds (26.0-36.0)
[2021-10-19] MEDS ORDERED: *HR* HYDROmorphone (PF) 1 MG/ML SYRINGE IVP ONE (11:30)
[2021-10-19] MEDS ORDERED: Isovue-370 500 ML BOTTLE IVP ONE ×3 (11:52→21:30)
[2021-10-19] MEDS ORDERED: Clindamycin 900 MG/50 ML 900 MG/50 ML IV.SOLN IVPB ONE (12:46)
[2021-10-19] MEDS ORDERED: 0.9 % Sodium Chloride 1,000 ML IVC SCH ×2 (13:15→15:55)
[2021-10-19] MEDS ORDERED: Ondansetron 4 MG/2 ML VIAL IVP PRN ×2 (14:53→21:30)
[2021-10-19] MEDS ORDERED: Acetaminophen 325 MG TABLET PO PRN ×2 (14:53→21:30)
[2021-10-19] MEDS ORDERED: Naloxone 0.4 MG/ML INJ IVP PRN ×2 (14:53→21:30)
[2021-10-19] MEDS ORDERED: Gadolinium Contrast Agent (WT Based) IV PRN ×2 (14:59→21:30)
[2021-10-19] MEDS ORDERED: D5% in Water 1,000 ML IVC PRN ×2 (15:52→21:30)
[2021-10-19] MEDS ORDERED: Dextrose Gel 15 GM/37.5 ML TUBE PO PRN ×4 (15:52→21:30)
[2021-10-19] MEDS ORDERED: *HR* Dextrose 50 % in Water (Syg) 50 ML SYRINGE IVP PRN ×2 (15:52→21:30)
[2021-10-19] MEDS ORDERED: Morphine Sulfate 2 MG/ML SYRINGE IVP PRN (15:54)
[2021-10-19] MEDS ORDERED: *HR* OxyCODONE/APAP 5/325 TABLET PO PRN (15:55)
[2021-10-19] MEDS ORDERED: Insulin LISPRO 300 UNITS/3 ML VIAL SUBQ SCH (16:30)
[2021-10-19] MEDS ORDERED: Cefepime HCl 2,000 MG in 0.9 % Sodium Chloride Mini Bag 100 ML IVPB SCH (18:00)
[2021-10-19] MEDS ORDERED: *HR* Succinylcholine 200 MG/10 ML VIAL IVP ONE (18:02)
[2021-10-19] MEDS ORDERED: Lidocaine HCL 4 ML Topical Solution (Laryng-O-Jet Kit Sterile Pak) TP ONE (18:02)
[2021-10-19] MEDS ORDERED: *HR* Propofol 200 MG/20 ML VIAL IVP ONE (18:02)
[2021-10-19] MEDS ORDERED: Lidocaine -MPF 2% 5 ML VIAL ONE (18:02)
[2021-10-19 19:04] LABS: Estimated Average Glucose 166 mg/dl; Hemoglobin A1C 7.4 %
[2021-10-19] MEDS ORDERED: *HR* FentaNYL (PF) 100 MCG/2 ML VIAL ONE ×2 (19:22→19:47)
[2021-10-19] MEDS ORDERED: *HR* Midazolam HCl 2 MG/2 ML VIAL ONE (19:23)
[2021-10-19] MEDS ORDERED: *HR* Rocuronium Bromide 50 MG/5 ML VIAL ONE (19:25)
[2021-10-19] MEDS ORDERED: Ondansetron 4 MG/2 ML VIAL ONE (19:50)
[2021-10-19] MEDS ORDERED: Acetaminophen IV 1,000 MG/100 ML BAG IVPB ONE (20:06)
[2021-10-19] MEDS ORDERED: *HR* HYDROMORPHONE 2 MG/ML VIAL ONE (20:21)
[2021-10-19] MEDS ORDERED: lisinopriL 10 MG TABLET PO SCH (21:00)
[2021-10-19] MEDS ORDERED: Insulin DETEMIR 100 UNIT/ML X5UNITS SUBQ SCH (21:00)
[2021-10-20] MEDS: Morphine Sulfate 2 MG/ML SYRINGE IVP PRN ×2 (00:32→04:40)
[2021-10-20] MEDS: 0.9 % Sodium Chloride 1,000 ML IVC SCH ×3 (00:36→21:12)
[2021-10-20] MEDS ORDERED: Vancomycin 1,750 MG/517.5 ML IV.SOLN IVPB SCH (01:00)
[2021-10-20] MEDS: Vancomycin 1,750 MG/517.5 ML IV.SOLN IVPB SCH ×2 (01:03→13:30)
[2021-10-20] MEDS: Cefepime HCl 2,000 MG in 0.9 % Sodium Chloride Mini Bag 100 ML IVPB SCH ×2 (04:40→17:34)
[2021-10-20 05:15] LABS: Basophils % 0.2 %; Hematocrit 34.2 % (37.5-50.1); Hemoglobin 11.3 g/dL (12.9-16.9); Immature Granulocytes % 1.2 % (0-4); Lymphocytes # 0.6 K/mcL (0.6-4.6); Lymphocytes % 5.4 %; Mean Corpuscular Hemoglobin 29.4 pg (28.0-33.3); Mean Corpuscular Volume 89.1 fL (83.0-100.0); Mean Platelet Volume 9.7 fL (9.4-12.4); Monocytes # 0.6 K/mcL (0.0-1.3); Monocytes % 5.6 %; Neutrophils # 9.4 K/mcL (1.6-8.9); Platelet Count 282 K/mcL (140-400); Red Blood Count 3.84 M/mcL (4.19-5.50); Red Cell Distribution Width 12.7 % (11.5-14.5); Segmented Neutrophils % 87.6 %; White Blood Count 10.7 K/mcL (4.3-11.1)
[2021-10-20 05:35] LABS: BUN/Creatinine Ratio 21 (6-26); Blood Urea Nitrogen 13 mg/dL (6-20); Calcium 8.3 mg/dL (8.6-10.3); Carbon Dioxide 20 mEq/L (23-29); Chloride 101 mEq/L (98-107); Glucose 204 mg/dL (70-105); Magnesium 1.7 mg/dL (1.6-2.6); Osmolality,Calculated 282 (280-300); Potassium 4.4 mEq/L (3.5-5.1); Sodium 133 mEq/L (136-145); eGFR For African Americans > 60 (> 60); eGFR For Non-African Americans > 60 (> 60)
[2021-10-20 08:58] LABS: Estimated Average Glucose 171 mg/dl; Hemoglobin A1C 7.6 %
[2021-10-20] MEDS ORDERED: *HR* SitaGLIPtin 100 MG TABLET PO SCH (09:00)
[2021-10-20] MEDS ORDERED: FLUoxetine 20 MG CAPSULE PO SCH (09:00)
[2021-10-20] MEDS: lisinopriL 10 MG TABLET PO SCH ×2 (09:08→21:12)
[2021-10-20] MEDS: *HR* OxyCODONE/APAP 5/325 TABLET PO PRN ×4 (09:08→22:01)
[2021-10-20] MEDS: Insulin LISPRO 300 UNITS/3 ML VIAL SUBQ SCH ×3 (09:09→17:36)
[2021-10-20] MEDS: *HR* SitaGLIPtin 100 MG TABLET PO SCH (09:09)
[2021-10-20] MEDS: FLUoxetine 20 MG CAPSULE PO SCH (09:09)
[2021-10-20] MEDS: Insulin DETEMIR 100 UNIT/ML X5UNITS SUBQ SCH (22:01)
[2021-10-21] MEDS: 0.9 % Sodium Chloride 1,000 ML IVC SCH ×2 (00:01→08:40)
[2021-10-21 00:27] LABS: Basophils % 0.2 %; Eosinophils % 0.3 %; Hematocrit 34.2 % (37.5-50.1); Hemoglobin 11.1 g/dL (12.9-16.9); Immature Granulocytes % 1.1 % (0-4); Lymphocytes % 9.2 %; Mean Corpuscular HGB Conc 32.5 g/dL (31.6-35.5); Mean Corpuscular Hemoglobin 28.8 pg (28.0-33.3); Mean Corpuscular Volume 88.6 fL (83.0-100.0); Mean Platelet Volume 9.4 fL (9.4-12.4); Monocytes # 0.8 K/mcL (0.0-1.3); Monocytes % 7.8 %; Neutrophils # 8.6 K/mcL (1.6-8.9); Platelet Count 315 K/mcL (140-400); Red Blood Count 3.86 M/mcL (4.19-5.50); Red Cell Distribution Width 13.2 % (11.5-14.5); Segmented Neutrophils % 81.4 %; White Blood Count 10.6 K/mcL (4.3-11.1)
[2021-10-21 00:47] LABS: BUN/Creatinine Ratio 29 (6-26); Blood Urea Nitrogen 19 mg/dL (6-20); Calcium 8.5 mg/dL (8.6-10.3); Carbon Dioxide 22 mEq/L (23-29); Chloride 106 mEq/L (98-107); Glucose 250 mg/dL (70-105); Osmolality,Calculated 293 (280-300); Potassium 4.1 mEq/L (3.5-5.1); Sodium 136 mEq/L (136-145); eGFR For African Americans > 60 (> 60); eGFR For Non-African Americans > 60 (> 60)
[2021-10-21] MEDS: Vancomycin 2,000 MG/520 ML IV.SOLN IVPB SCH ×2 (02:05→12:21)
[2021-10-21] MEDS: Cefepime HCl 2,000 MG in 0.9 % Sodium Chloride Mini Bag 100 ML IVPB SCH ×2 (05:29→17:53)
[2021-10-21] MEDS: *HR* OxyCODONE/APAP 5/325 TABLET PO PRN ×4 (05:29→22:08)
[2021-10-21] MEDS: FLUoxetine 20 MG CAPSULE PO SCH (07:58)
[2021-10-21] MEDS: lisinopriL 10 MG TABLET PO SCH ×2 (07:59→21:30)
[2021-10-21] MEDS: *HR* SitaGLIPtin 100 MG TABLET PO SCH (07:59)
[2021-10-21] MEDS: Insulin LISPRO 300 UNITS/3 ML VIAL SUBQ SCH ×3 (08:00→17:04)
[2021-10-21] MEDS: Morphine Sulfate 2 MG/ML SYRINGE IVP PRN (08:35)
[2021-10-21] MEDS: Insulin DETEMIR 100 UNIT/ML X5UNITS SUBQ SCH (21:30)
[2021-10-22] MEDS: Vancomycin 2,000 MG/520 ML IV.SOLN IVPB SCH (01:22)
[2021-10-22] MEDS: *HR* OxyCODONE/APAP 5/325 TABLET PO PRN ×4 (02:00→21:00)
[2021-10-22] MEDS: Cefepime HCl 2,000 MG in 0.9 % Sodium Chloride Mini Bag 100 ML IVPB SCH ×2 (05:35→18:28)
[2021-10-22] MEDS: FLUoxetine 20 MG CAPSULE PO SCH (08:23)
[2021-10-22] MEDS: lisinopriL 10 MG TABLET PO SCH ×2 (08:23→21:00)
[2021-10-22] MEDS: *HR* SitaGLIPtin 100 MG TABLET PO SCH (08:23)
[2021-10-22] MEDS: Insulin LISPRO 300 UNITS/3 ML VIAL SUBQ SCH ×3 (08:25→16:40)
[2021-10-22] MEDS: 0.9 % Sodium Chloride 1,000 ML IVC SCH ×2 (12:30→14:43)
[2021-10-22 12:52] LABS: Basophils # 0.1 K/mcL (0.0-0.2); Basophils % 0.8 %; Eosinophils # 0.1 K/mcL (0.0-0.6); Hematocrit 36.7 % (37.5-50.1); Hemoglobin 12.1 g/dL (12.9-16.9); Immature Granulocytes % 2.4 % (0-4); Lymphocytes # 1.4 K/mcL (0.6-4.6); Mean Corpuscular Hemoglobin 29.3 pg (28.0-33.3); Mean Corpuscular Volume 88.9 fL (83.0-100.0); Mean Platelet Volume 10.2 fL (9.4-12.4); Monocytes # 0.8 K/mcL (0.0-1.3); Monocytes % 9.1 %; Neutrophils # 5.8 K/mcL (1.6-8.9); Platelet Count 325 K/mcL (140-400); Red Blood Count 4.13 M/mcL (4.19-5.50); Red Cell Distribution Width 13.4 % (11.5-14.5); Segmented Neutrophils % 69.7 %; White Blood Count 8.4 K/mcL (4.3-11.1)
[2021-10-22 13:49] LABS: BUN/Creatinine Ratio 15 (6-26); Blood Urea Nitrogen 8 mg/dL (6-20); Calcium 8.8 mg/dL (8.6-10.3); Carbon Dioxide 21 mEq/L (23-29); Chloride 110 mEq/L (98-107); Glucose 114 mg/dL (70-105); Osmolality,Calculated 285 (280-300); Potassium 3.6 mEq/L (3.5-5.1); Sodium 138 mEq/L (136-145); eGFR For African Americans > 60 (> 60); eGFR For Non-African Americans > 60 (> 60)
[2021-10-22] MEDS ORDERED: Vancomycin 1,500 MG/265 ML IV.SOLN IVPB SCH (14:00)
[2021-10-22] MEDS: Morphine Sulfate 2 MG/ML SYRINGE IVP PRN (15:49)
[2021-10-22] MEDS: Insulin DETEMIR 100 UNIT/ML X5UNITS SUBQ SCH (19:21)
[2021-10-23] MEDS: 0.9 % Sodium Chloride 1,000 ML IVC SCH ×4 (02:51→23:04)
[2021-10-23] MEDS: Vancomycin 1,500 MG/265 ML IV.SOLN IVPB SCH ×3 (02:52→19:07)
[2021-10-23] MEDS: *HR* OxyCODONE/APAP 5/325 TABLET PO PRN ×4 (02:55→23:04)
[2021-10-23] MEDS: Cefepime HCl 2,000 MG in 0.9 % Sodium Chloride Mini Bag 100 ML IVPB SCH ×2 (05:08→17:54)
[2021-10-23] MEDS: lisinopriL 10 MG TABLET PO SCH ×2 (08:49→19:15)
[2021-10-23] MEDS: Insulin LISPRO 300 UNITS/3 ML VIAL SUBQ SCH ×3 (08:50→16:54)
[2021-10-23] MEDS: *HR* SitaGLIPtin 100 MG TABLET PO SCH (08:50)
[2021-10-23] MEDS: FLUoxetine 20 MG CAPSULE PO SCH (08:50)
[2021-10-23] MEDS ORDERED: Bupivacaine-MPF 0.25% 10 ML VIAL ONE (11:22)
[2021-10-23] MEDS ORDERED: *HR* HYDROmorphone PF 0.5 MG/0.5 ML SYRINGE IVP PRN (11:39)
[2021-10-23] MEDS ORDERED: Ondansetron 4 MG/2 ML VIAL IVP PRN (11:39)
[2021-10-23] MEDS: Ringers Solution, Lactated 1,000 ML IVC SCH (11:51)
[2021-10-23] MEDS ORDERED: *HR* FentaNYL (PF) 100 MCG/2 ML VIAL ONE (11:56)
[2021-10-23] MEDS ORDERED: *HR* Propofol 200 MG/20 ML VIAL IVP ONE (11:56)
[2021-10-23] MEDS ORDERED: Lidocaine -MPF 2% 5 ML VIAL ONE (11:57)
[2021-10-23] MEDS ORDERED: *HR* Succinylcholine 200 MG/10 ML VIAL IVP ONE (11:57)
[2021-10-23] MEDS ORDERED: Lidocaine HCL 4 ML Topical Solution (Laryng-O-Jet Kit Sterile Pak) TP ONE (11:58)
[2021-10-23] MEDS ORDERED: Acetaminophen IV 1,000 MG/100 ML BAG IVPB ONE (12:00)
[2021-10-23] MEDS ORDERED: Vancomycin 1,000 MG, 0.9 % Sodium Chloride 1,000 ML IR ONE (12:00)
[2021-10-23] MEDS ORDERED: Famotidine 20 MG/2 ML VIAL IVP ONE (12:00)
[2021-10-23] MEDS ORDERED: Ondansetron 4 MG/2 ML VIAL ONE (12:33)
[2021-10-23] MEDS: Morphine Sulfate 2 MG/ML SYRINGE IVP PRN (15:02)
[2021-10-23] MEDS: Insulin DETEMIR 100 UNIT/ML X5UNITS SUBQ SCH (20:46)
[2021-10-24] MEDS: *HR* OxyCODONE/APAP 5/325 TABLET PO PRN ×5 (03:26→22:37)
[2021-10-24] MEDS: Vancomycin 1,500 MG/265 ML IV.SOLN IVPB SCH ×3 (03:26→19:27)
[2021-10-24 05:35] LABS: Basophils % 0.4 %; Eosinophils % 0.5 %; Hematocrit 33.7 % (37.5-50.1); Immature Granulocytes % 1.9 % (0-4); Lymphocytes # 0.9 K/mcL (0.6-4.6); Lymphocytes % 12.6 %; Mean Corpuscular HGB Conc 32.6 g/dL (31.6-35.5); Mean Corpuscular Hemoglobin 28.9 pg (28.0-33.3); Mean Corpuscular Volume 88.7 fL (83.0-100.0); Mean Platelet Volume 9.9 fL (9.4-12.4); Monocytes # 0.6 K/mcL (0.0-1.3); Monocytes % 8.3 %; Neutrophils # 5.7 K/mcL (1.6-8.9); Platelet Count 253 K/mcL (140-400); Red Cell Distribution Width 13.4 % (11.5-14.5); Segmented Neutrophils % 76.3 %; White Blood Count 7.5 K/mcL (4.3-11.1)
[2021-10-24] MEDS: Cefepime HCl 2,000 MG in 0.9 % Sodium Chloride Mini Bag 100 ML IVPB SCH ×2 (05:44→17:54)
[2021-10-24 05:54] LABS: BUN/Creatinine Ratio 11 (6-26); Blood Urea Nitrogen 5 mg/dL (6-20); Calcium 8.2 mg/dL (8.6-10.3); Carbon Dioxide 22 mEq/L (23-29); Chloride 102 mEq/L (98-107); Glucose 125 mg/dL (70-105); Magnesium 1.3 mg/dL (1.6-2.6); Osmolality,Calculated 277 (280-300); Phosphorous 2.9 mg/dL (2.7-4.5); Potassium 3.4 mEq/L (3.5-5.1); Sodium 134 mEq/L (136-145); eGFR For African Americans > 60 (> 60); eGFR For Non-African Americans > 60 (> 60)
[2021-10-24] MEDS: Insulin LISPRO 300 UNITS/3 ML VIAL SUBQ SCH ×3 (07:44→17:24)
[2021-10-24] MEDS: *HR* SitaGLIPtin 100 MG TABLET PO SCH (07:53)
[2021-10-24] MEDS: FLUoxetine 20 MG CAPSULE PO SCH (07:53)
[2021-10-24] MEDS: lisinopriL 10 MG TABLET PO SCH ×2 (07:54→19:27)
[2021-10-24] MEDS: Morphine Sulfate 2 MG/ML SYRINGE IVP PRN ×2 (10:59→19:37)
[2021-10-24] MEDS: Ringers Solution, Lactated 1,000 ML IVC SCH (11:09)
[2021-10-24] MEDS: 0.9 % Sodium Chloride 1,000 ML IVC SCH ×3 (11:10→19:34)
[2021-10-24] MEDS ORDERED: Lidocaine -MPF 1% 5 ML AMPUL INFILT ONE (11:46)
[2021-10-24] MEDS: Insulin DETEMIR 100 UNIT/ML X5UNITS SUBQ SCH (22:35)
[2021-10-25] MEDS: Morphine Sulfate 2 MG/ML SYRINGE IVP PRN ×2 (01:52→08:23)
[2021-10-25] MEDS: Vancomycin 1,500 MG/265 ML IV.SOLN IVPB SCH ×2 (01:58→11:11)
[2021-10-25 03:28] LABS: Basophils % 0.5 %; Eosinophils # 0.2 K/mcL (0.0-0.6); Eosinophils % 2.8 %; Hematocrit 31.6 % (37.5-50.1); Hemoglobin 10.5 g/dL (12.9-16.9); Immature Granulocytes % 2.4 % (0-4); Lymphocytes # 0.9 K/mcL (0.6-4.6); Lymphocytes % 15.1 %; Mean Corpuscular HGB Conc 33.2 g/dL (31.6-35.5); Mean Corpuscular Hemoglobin 29.4 pg (28.0-33.3); Mean Corpuscular Volume 88.5 fL (83.0-100.0); Mean Platelet Volume 9.7 fL (9.4-12.4); Monocytes # 0.7 K/mcL (0.0-1.3); Monocytes % 11.7 %; Neutrophils # 4.2 K/mcL (1.6-8.9); Platelet Count 269 K/mcL (140-400); Red Blood Count 3.57 M/mcL (4.19-5.50); Red Cell Distribution Width 13.3 % (11.5-14.5); Segmented Neutrophils % 67.5 %; White Blood Count 6.2 K/mcL (4.3-11.1)
[2021-10-25 03:38] LABS: BUN/Creatinine Ratio 9 (6-26); Blood Urea Nitrogen 4 mg/dL (6-20); Calcium 8.1 mg/dL (8.6-10.3); Carbon Dioxide 26 mEq/L (23-29); Chloride 103 mEq/L (98-107); Glucose 129 mg/dL (70-105); Magnesium 1.4 mg/dL (1.6-2.6); Osmolality,Calculated 281 (280-300); Phosphorous 2.9 mg/dL (2.7-4.5); Potassium 3.5 mEq/L (3.5-5.1); Sodium 136 mEq/L (136-145); eGFR For African Americans > 60 (> 60); eGFR For Non-African Americans > 60 (> 60)
[2021-10-25] MEDS: *HR* OxyCODONE/APAP 5/325 TABLET PO PRN ×2 (04:58→11:28)
[2021-10-25] MEDS: Cefepime HCl 2,000 MG in 0.9 % Sodium Chloride Mini Bag 100 ML IVPB SCH (05:01)
[2021-10-25 08:03] VITALS: TEMP 97.6
[2021-10-25] MEDS: Insulin LISPRO 300 UNITS/3 ML VIAL SUBQ SCH ×2 (08:16→12:41)
[2021-10-25] MEDS: FLUoxetine 20 MG CAPSULE PO SCH (08:23)
[2021-10-25] MEDS: lisinopriL 10 MG TABLET PO SCH (08:23)
[2021-10-25] MEDS: *HR* SitaGLIPtin 100 MG TABLET PO SCH (08:23)
[2021-10-25 12:04] VITALS: BP 151/81; PULSE 87; O2SAT 97
== END 2021-10-25 13:45 | disposition home health service (06) | DRG 853 ==
LOC: 4WAOSI 10:25 → EMEROOARM 10:25 → SUATTDRO 14:53 → 4WAOSI 15:53
PROVIDERS: ADMIT Hospitalist; ATTEND Hospitalist

== ENCOUNTER 2022-06-05 17:20 | Inpatient (IN) ==
[2022-06-05] MEDS ORDERED: Iopamidol - 370 500 ML MLS IVP ONE (17:41)
[2022-06-05 17:45] LABS: ABG Base Excess -15 mEq/L (-2 to 3); ABG Chloride 105 mEq/L (98-107); ABG Glucose 185 mg/dL (60-95); ABG HCO3 18 mEq/L (21-27); ABG Ionized Calcium 1.17 mmol/L (1.15-1.35); ABG Oxygen Saturation 97 % (95-98); ABG PCO2 74 mmHg (35-45); ABG PH 6.98 pH Units (7.32-7.45); ABG PO2 139 mmHg (85-104); ABG TCO2 20 mEq/L (20-26); Blood Gas Modality ASSIST CONTROL; Blood Gas VT 500 cc
[2022-06-05 17:57] LABS: Basophils # 0.1 K/mcL (0.0-0.2); Basophils % 0.5 %; Eosinophils # 0.7 K/mcL (0.0-0.6); Hematocrit 41.2 % (37.5-50.1); Immature Granulocytes % 0.6 % (0-4); Lymphocytes # 8.3 K/mcL (0.6-4.6); Mean Corpuscular HGB Conc 31.6 g/dL (31.6-35.5); Mean Corpuscular Hemoglobin 29.3 pg (28.0-33.3); Mean Platelet Volume 9.2 fL (9.4-12.4); Monocytes # 1.7 K/mcL (0.0-1.3); Monocytes % 9.6 %; Neutrophils # 6.8 K/mcL (1.6-8.9); Platelet Count 296 K/mcL (140-400); Red Blood Count 4.43 M/mcL (4.19-5.50); Red Cell Distribution Width 13.2 % (11.5-14.5); Segmented Neutrophils % 38.3 %; White Blood Count 17.7 K/mcL (4.3-11.1)
[2022-06-05 18:08] LABS: INR 1.1; Prothrombin Time 12.3 Seconds (9.4-12.1)
[2022-06-05 18:20] LABS: Bilirubin,Urine Negative (Negative); Blood,Urine Trace (Negative); Clarity,Urine Clear (Clear); Color,Urine Colorless (Yellow); Glucose,Urine (UA) 300 mg/dL (Normal); Ketones,Urine Negative (Negative); Leukocyte Esterase,Urine Negative (Negative); Mucus,Urine Few per lpf (None-Few); Nitrite,Urine Negative (Negative); PH,Urine 6.5 pH Units (5.0-8.0); Protein,Urine 100 mg/dL (Neg-Trace); RBC,Urine 0-3 per hpf (0-3); Specific Gravity,Urine 1.007 (1.010-1.025); Urobilinogen,Urine Normal (Normal); WBC,Urine 0-3 per hpf (0-3)
[2022-06-05 18:23] LABS: Amphetamine Screen,Urine Negative ng/mL (Cutoff=1000); Barbiturate Screen,Urine Negative ng/mL (Cutoff=200); Benzodiazepines Screen,Urine Negative ng/mL (Cutoff=200); Cannabinoid Screen,Urine Negative ng/mL (Cutoff = 50); Cocaine Screen,Urine Negative ng/mL (Cutoff= 300); Opiate Screen,Urine Negative ng/mL (Cutoff=300); Phencyclidine Screen,Urine Negative ng/mL (Cutoff=25)
[2022-06-05] MEDS ORDERED: Piperacillin/Tazobactam 3.375 GM in 0.9 % Sodium Chloride Mini Bag 100 ML IVPB ONE (18:36)
[2022-06-05] MEDS ORDERED: Vancomycin 2,000 MG/520 ML IV.SOLN IVPB ONE (18:36)
[2022-06-05 18:41] LABS: Alanine Aminotransferase 44 Units/L (7-52); Albumin 4.5 g/dL (3.5-5.7); Albumin/Globulin Ratio 1.3 (1.1-2.2); Alkaline Phosphatase 83 Units/L (34-104); Aspartate Amino Transferase 75 Units/L (13-39); BUN/Creatinine Ratio 14 (6-26); Bilirubin,Total 0.6 mg/dL (0.3-1.0); Blood Urea Nitrogen 14 mg/dL (6-20); Calcium 8.8 mg/dL (8.6-10.3); Carbon Dioxide 22 mEq/L (23-29); Chloride 97 mEq/L (98-107); Creatine Kinase 101 Units/L (30-223); Ethanol 193 mg/dL (Less than 10); Globulin 3.6 g/dL (2.4-3.5); Glucose 197 mg/dL (70-105); Lipase 773 Units/L (11-82); Magnesium 2.2 mg/dL (1.6-2.6); Osmolality,Calculated 282 (280-300); Sodium 133 mEq/L (136-145); Total Protein 8.1 g/dL (6.4-8.9); Troponin I < 0.03 ng/mL (< 0.04)
[2022-06-05] MEDS ORDERED: Dexmedetomidine HCl 400 MCG/100 ML MLS IVC ONE (19:07)
[2022-06-05] MEDS: Dexmedetomidine HCl 400 MCG/100 ML MLS IVC SCH ×2 (19:09→23:05)
[2022-06-05 20:00] LABS: Adenovirus Not Detected (Not Detect); Bordetella Pertussis Not Detected (Not Detect); Chlamydophila pneumoniae Not Detected (Not Detect); Coronavirus 229E Not Detected (Not Detect); Coronavirus HKU1 Not Detected (Not Detect); Coronavirus NL63 Not Detected (Not Detect); Coronavirus OC43 Not Detected (Not Detect); Human Metapneumovirus Not Detected (Not Detect); Human Rhinovirus/Enterovirus Not Detected (Not Detect); Influenza A Subtype 2009 H1 Not Detected (Not Detect); Influenza B Not Detected (Not Detect); Mycoplasma pneumoniae Not Detected (Not Detect); Parainfluenza Virus 1 Not Detected (Not Detect); Parainfluenza Virus 2 Not Detected (Not Detect); Parainfluenza Virus 3 Not Detected (Not Detect); Parainfluenza Virus 4 Not Detected (Not Detect); Respiratory Syncytial Virus Not Detected (Not Detect); SARS-CoV-2 Not Detected (Not Detect)
[2022-06-05] MEDS ORDERED: Naloxone 0.4 MG/ML INJ IVP PRN (20:43)
[2022-06-05] MEDS ORDERED: *HR* Etomidate 20 MG/10 ML AMPUL IVP ONE (20:59)
[2022-06-05] MEDS ORDERED: *HR* Rocuronium Bromide 50 MG/5 ML VIAL IVP ONE (20:59)
[2022-06-05] MEDS: Midazolam HCl 50 MG/50 ML IV.SOLN IVC SCH (21:00)
[2022-06-05 21:24] LABS: ABG Base Excess -6 mEq/L (-2 to 3); ABG HCO3 19 mEq/L (21-27); ABG Oxygen Saturation 100 % (95-98); ABG PCO2 33 mmHg (35-45); ABG PH 7.36 pH Units (7.32-7.45); ABG PO2 239 mmHg (85-104); ABG TCO2 20 mEq/L (20-26)
[2022-06-05] MEDS ORDERED: *HR* Midazolam HCl 5 MG/5 ML VIAL IVP ONE (21:57)
[2022-06-06] MEDS: Piperacillin/Tazobactam 3.375 GM in 0.9 % Sodium Chloride Mini Bag 100 ML IVPB SCH ×4 (01:58→23:12)
[2022-06-06] MEDS: Dexmedetomidine HCl 400 MCG/100 ML MLS IVC SCH ×2 (03:08→07:20)
[2022-06-06 03:43] LABS: ABG Base Excess -3 mEq/L (-2 to 3); ABG HCO3 22 mEq/L (21-27); ABG Oxygen Saturation 99 % (95-98); ABG PCO2 36 mmHg (35-45); ABG PH 7.39 pH Units (7.32-7.45); ABG PO2 138 mmHg (85-104); ABG TCO2 23 mEq/L (20-26); Blood Gas Modality AF; Blood Gas VT 500 cc
[2022-06-06] MEDS: *HR* Enoxaparin 40 MG/0.4 ML SYRINGE SQ SCH (05:31)
[2022-06-06] MEDS: Vancomycin 1,750 MG/517.5 ML IV.SOLN IVPB SCH ×2 (08:37→20:16)
[2022-06-06] MEDS ORDERED: *HR* Promethazine 25 MG/ML VIAL IM PRN (08:38)
[2022-06-06] MEDS ORDERED: *HR* LORazepam 2 MG/ML VIAL IVP PRN ×3 (08:38)
[2022-06-06 09:36] LABS: Basophils % 0.2 %; Eosinophils # 0.2 K/mcL (0.0-0.6); Eosinophils % 3.1 %; Hematocrit 35.4 % (37.5-50.1); Hemoglobin 11.7 g/dL (12.9-16.9); Immature Granulocytes % 0.3 % (0-4); Lymphocytes # 1.1 K/mcL (0.6-4.6); Lymphocytes % 16.2 %; Mean Corpuscular HGB Conc 33.1 g/dL (31.6-35.5); Mean Corpuscular Hemoglobin 29.4 pg (28.0-33.3); Mean Corpuscular Volume 88.9 fL (83.0-100.0); Mean Platelet Volume 9.2 fL (9.4-12.4); Monocytes # 0.5 K/mcL (0.0-1.3); Monocytes % 7.8 %; Neutrophils # 4.7 K/mcL (1.6-8.9); Platelet Count 182 K/mcL (140-400); Red Blood Count 3.98 M/mcL (4.19-5.50); Red Cell Distribution Width 13.1 % (11.5-14.5); Segmented Neutrophils % 72.4 %
[2022-06-06 09:39] LABS: White Blood Count 6.5 K/mcL (4.3-11.1)
[2022-06-06 10:22] LABS: BUN/Creatinine Ratio 14 (6-26); Blood Urea Nitrogen 10 mg/dL (6-20); Calcium 8.4 mg/dL (8.6-10.3); Carbon Dioxide 24 mEq/L (23-29); Chloride 105 mEq/L (98-107); Glucose 162 mg/dL (70-105); Osmolality,Calculated 281 (280-300); Potassium 4.3 mEq/L (3.5-5.1); Sodium 134 mEq/L (136-145)
[2022-06-06] MEDS ORDERED: D5% in Water 1,000 ML IVC PRN (14:47)
[2022-06-06] MEDS ORDERED: Dextrose Gel 15 GM/37.5 ML TUBE PO PRN ×2 (14:47)
[2022-06-06] MEDS ORDERED: *HR* Dextrose 50 % in Water (Syg) 50 ML SYRINGE IVP PRN (14:47)
[2022-06-06] MEDS ORDERED: Gadolinium Contrast Agent (WT Based) IV PRN (15:37)
[2022-06-06] MEDS: Insulin LISPRO 300 UNITS/3 ML VIAL SUBQ SCH ×2 (16:21→20:39)
[2022-06-06] MEDS ORDERED: GADOBUTROL 30 MMOL/30 ML VIAL IVP ONE (17:56)
[2022-06-06] MEDS ORDERED: Thiamine (B-1) 100 MG, Folic Acid 1 MG, MVI, adult with vitamin K 10 ML in 0.9 % Sodi... IVPB SCH (18:00)
[2022-06-07] MEDS: *HR* Enoxaparin 40 MG/0.4 ML SYRINGE SQ SCH (05:06)
[2022-06-07] MEDS ORDERED: Gadolinium Contrast Agent (WT Based) IV PRN (07:35)
[2022-06-07] MEDS ORDERED: Dextrose Gel 15 GM/37.5 ML TUBE PO PRN ×2 (07:35)
[2022-06-07] MEDS ORDERED: Naloxone 0.4 MG/ML INJ IVP PRN (07:35)
[2022-06-07] MEDS ORDERED: D5% in Water 1,000 ML IVC PRN (07:35)
[2022-06-07] MEDS ORDERED: *HR* Promethazine 25 MG/ML VIAL IM PRN (07:35)
[2022-06-07] MEDS ORDERED: *HR* LORazepam 2 MG/ML VIAL IVP PRN ×3 (07:35)
[2022-06-07] MEDS ORDERED: *HR* Dextrose 50 % in Water (Syg) 50 ML SYRINGE IVP PRN (07:35)
[2022-06-07] MEDS ORDERED: Dexmedetomidine HCl 400 MCG/100 ML MLS IVC SCH (07:35)
[2022-06-07] MEDS ORDERED: Vancomycin 1,750 MG/517.5 ML IV.SOLN IVPB SCH (08:00)
[2022-06-07] MEDS ORDERED: lisinopriL 20 MG TABLET PO SCH (09:00)
[2022-06-07] MEDS ORDERED: FLUoxetine 20 MG CAPSULE PO SCH (09:00)
[2022-06-07] MEDS ORDERED: GlipiZIDE 5 MG TABLET PO SCH (09:00)
[2022-06-07] MEDS ORDERED: *HR* SitaGLIPtin 100 MG TABLET PO SCH (09:00)
[2022-06-07 09:10] LABS: Basophils % 0.4 %; Eosinophils # 0.1 K/mcL (0.0-0.6); Eosinophils % 1.6 %; Hemoglobin 11.3 g/dL (12.9-16.9); Immature Granulocytes % 0.4 % (0-4); Lymphocytes # 1.4 K/mcL (0.6-4.6); Lymphocytes % 18.4 %; Mean Corpuscular HGB Conc 33.2 g/dL (31.6-35.5); Mean Corpuscular Hemoglobin 29.4 pg (28.0-33.3); Mean Corpuscular Volume 88.5 fL (83.0-100.0); Mean Platelet Volume 9.4 fL (9.4-12.4); Monocytes # 0.7 K/mcL (0.0-1.3); Monocytes % 9.6 %; Neutrophils # 5.4 K/mcL (1.6-8.9); Platelet Count 209 K/mcL (140-400); Red Blood Count 3.84 M/mcL (4.19-5.50); Red Cell Distribution Width 13.2 % (11.5-14.5); Segmented Neutrophils % 69.6 %; White Blood Count 7.7 K/mcL (4.3-11.1)
[2022-06-07 09:21] LABS: BUN/Creatinine Ratio 16 (6-26); Blood Urea Nitrogen 10 mg/dL (6-20); Calcium 8.7 mg/dL (8.6-10.3); Carbon Dioxide 22 mEq/L (23-29); Chloride 104 mEq/L (98-107); Glucose 125 mg/dL (70-105); Osmolality,Calculated 279 (280-300); Sodium 134 mEq/L (136-145)
[2022-06-07] MEDS: Piperacillin/Tazobactam 3.375 GM in 0.9 % Sodium Chloride Mini Bag 100 ML IVPB SCH ×2 (09:30→15:44)
[2022-06-07] MEDS: *HR* SitaGLIPtin 100 MG TABLET PO SCH (09:43)
[2022-06-07] MEDS: FLUoxetine 20 MG CAPSULE PO SCH (09:43)
[2022-06-07] MEDS: GlipiZIDE 5 MG TABLET PO SCH (09:43)
[2022-06-07] MEDS: lisinopriL 20 MG TABLET PO SCH (09:43)
[2022-06-07] MEDS: Vancomycin 1,750 MG/517.5 ML IV.SOLN IVPB SCH ×3 (10:26→17:21)
[2022-06-07] MEDS: Insulin LISPRO 300 UNITS/3 ML VIAL SUBQ SCH ×4 (10:26→20:15)
[2022-06-07] MEDS: Thiamine (B-1) 100 MG, Folic Acid 1 MG, MVI, adult with vitamin K 10 ML in 0.9 % Sodi... IVPB SCH (17:21)
[2022-06-08] MEDS: Vancomycin 1,750 MG/517.5 ML IV.SOLN IVPB SCH ×3 (01:28→17:52)
[2022-06-08] MEDS: Piperacillin/Tazobactam 3.375 GM in 0.9 % Sodium Chloride Mini Bag 100 ML IVPB SCH ×4 (01:28→23:41)
[2022-06-08] MEDS: *HR* Enoxaparin 40 MG/0.4 ML SYRINGE SQ SCH (06:23)
[2022-06-08] MEDS: FLUoxetine 20 MG CAPSULE PO SCH (07:46)
[2022-06-08] MEDS: Insulin LISPRO 300 UNITS/3 ML VIAL SUBQ SCH ×4 (07:46→22:21)
[2022-06-08] MEDS: GlipiZIDE 5 MG TABLET PO SCH (07:46)
[2022-06-08] MEDS: lisinopriL 20 MG TABLET PO SCH (07:46)
[2022-06-08] MEDS: *HR* SitaGLIPtin 100 MG TABLET PO SCH (07:46)
[2022-06-08] MEDS: Thiamine (B-1) 100 MG, Folic Acid 1 MG, MVI, adult with vitamin K 10 ML in 0.9 % Sodi... IVPB SCH (17:53)
[2022-06-09] MEDS: Vancomycin 1,750 MG/517.5 ML IV.SOLN IVPB SCH ×3 (01:33→18:09)
[2022-06-09 02:07] LABS: Basophils % 0.3 %; Eosinophils # 0.1 K/mcL (0.0-0.6); Eosinophils % 1.6 %; Hematocrit 32.7 % (37.5-50.1); Hemoglobin 10.7 g/dL (12.9-16.9); Immature Granulocytes % 0.4 % (0-4); Lymphocytes # 1.3 K/mcL (0.6-4.6); Lymphocytes % 18.8 %; Mean Corpuscular HGB Conc 32.7 g/dL (31.6-35.5); Mean Corpuscular Hemoglobin 28.5 pg (28.0-33.3); Mean Corpuscular Volume 87.2 fL (83.0-100.0); Mean Platelet Volume 9.1 fL (9.4-12.4); Monocytes # 0.6 K/mcL (0.0-1.3); Monocytes % 8.4 %; Neutrophils # 4.9 K/mcL (1.6-8.9); Platelet Count 207 K/mcL (140-400); Red Blood Count 3.75 M/mcL (4.19-5.50); Segmented Neutrophils % 70.5 %; White Blood Count 6.9 K/mcL (4.3-11.1)
[2022-06-09 02:27] LABS: BUN/Creatinine Ratio 8 (6-26); Blood Urea Nitrogen 5 mg/dL (6-20); Calcium 8.8 mg/dL (8.6-10.3); Carbon Dioxide 25 mEq/L (23-29); Chloride 104 mEq/L (98-107); Glucose 130 mg/dL (70-105); Osmolality,Calculated 281 (280-300); Potassium 3.5 mEq/L (3.5-5.1); Sodium 136 mEq/L (136-145)
[2022-06-09] MEDS ORDERED: *HR* Labetalol 20 MG/4 ML SYRINGE IVP ONE (03:46)
[2022-06-09] MEDS: *HR* Enoxaparin 40 MG/0.4 ML SYRINGE SQ SCH ×2 (04:46→19:49)
[2022-06-09] MEDS: GlipiZIDE 5 MG TABLET PO SCH (08:27)
[2022-06-09] MEDS: lisinopriL 20 MG TABLET PO SCH (08:27)
[2022-06-09] MEDS: *HR* SitaGLIPtin 100 MG TABLET PO SCH (08:27)
[2022-06-09] MEDS: FLUoxetine 20 MG CAPSULE PO SCH (08:28)
[2022-06-09] MEDS: Piperacillin/Tazobactam 3.375 GM in 0.9 % Sodium Chloride Mini Bag 100 ML IVPB SCH ×2 (08:29→17:11)
[2022-06-09] MEDS: Insulin LISPRO 300 UNITS/3 ML VIAL SUBQ SCH ×4 (08:37→20:28)
[2022-06-09] MEDS: Midazolam HCl 50 MG/50 ML IV.SOLN IVC SCH (19:00)
[2022-06-10] MEDS: Piperacillin/Tazobactam 3.375 GM in 0.9 % Sodium Chloride Mini Bag 100 ML IVPB SCH ×4 (00:51→23:39)
[2022-06-10 03:03] LABS: Basophils % 0.5 %; Eosinophils # 0.3 K/mcL (0.0-0.6); Eosinophils % 4.7 %; Hemoglobin 10.7 g/dL (12.9-16.9); Immature Granulocytes % 0.2 % (0-4); Lymphocytes % 17.7 %; Mean Corpuscular HGB Conc 33.4 g/dL (31.6-35.5); Mean Corpuscular Hemoglobin 29.2 pg (28.0-33.3); Mean Corpuscular Volume 87.4 fL (83.0-100.0); Mean Platelet Volume 9.3 fL (9.4-12.4); Monocytes # 0.5 K/mcL (0.0-1.3); Monocytes % 9.4 %; Neutrophils # 3.9 K/mcL (1.6-8.9); Platelet Count 226 K/mcL (140-400); Red Blood Count 3.66 M/mcL (4.19-5.50); Red Cell Distribution Width 13.3 % (11.5-14.5); Segmented Neutrophils % 67.5 %; White Blood Count 5.8 K/mcL (4.3-11.1)
[2022-06-10 03:07] LABS: BUN/Creatinine Ratio 7 (6-26); Blood Urea Nitrogen 5 mg/dL (6-20); Calcium 8.6 mg/dL (8.6-10.3); Carbon Dioxide 26 mEq/L (23-29); Chloride 106 mEq/L (98-107); Glucose 154 mg/dL (70-105); Osmolality,Calculated 292 (280-300); Potassium 3.4 mEq/L (3.5-5.1); Sodium 141 mEq/L (136-145)
[2022-06-10] MEDS: Vancomycin 1,750 MG/517.5 ML IV.SOLN IVPB SCH ×2 (05:29→11:28)
[2022-06-10] MEDS: Insulin LISPRO 300 UNITS/3 ML VIAL SUBQ SCH ×3 (07:43→20:58)
[2022-06-10] MEDS: lisinopriL 20 MG TABLET PO SCH (10:00)
[2022-06-10] MEDS: FLUoxetine 20 MG CAPSULE PO SCH (10:19)
[2022-06-10] MEDS: GlipiZIDE 5 MG TABLET PO SCH (11:27)
[2022-06-10] MEDS: *HR* SitaGLIPtin 100 MG TABLET PO SCH (11:27)
[2022-06-10] MEDS ORDERED: Potassium Chloride Elixir 20 MEQ/15 ML UDC PO ONE (12:24)
[2022-06-10] MEDS ORDERED: Famotidine 20 MG/2 ML VIAL IVP ONE (13:31)
[2022-06-10] MEDS ORDERED: Acetaminophen IV 1,000 MG/100 ML BAG IVPB ONE (13:32)
[2022-06-10] MEDS ORDERED: Lidocaine 1% 20 ML MDV ONE (15:07)
[2022-06-10] MEDS ORDERED: *HR* Propofol 200 MG/20 ML VIAL IVP ONE ×2 (15:58→16:48)
[2022-06-10] MEDS ORDERED: Lidocaine -MPF 2% 2 ML VIAL ONE (15:58)
[2022-06-10] MEDS ORDERED: Ketamine HCL *QUVA* 50mg (1mL) SYRINGE ONE (16:34)
[2022-06-10] MEDS ORDERED: *HR* Midazolam HCl 2 MG/2 ML VIAL ONE ×2 (16:36→16:41)
[2022-06-10] MEDS ORDERED: 0.9 % Sodium Chloride Mini Bag 100 ML ONE (18:33)
[2022-06-10] MEDS ORDERED: Piperacillin/Tazobactam 3.375 GM VIAL ONE (18:33)
[2022-06-11] MEDS: Vancomycin 1,750 MG/517.5 ML IV.SOLN IVPB SCH ×2 (01:30)
[2022-06-11 02:12] LABS: Basophils % 0.7 %; Eosinophils # 0.2 K/mcL (0.0-0.6); Eosinophils % 3.1 %; Hematocrit 34.3 % (37.5-50.1); Hemoglobin 11.3 g/dL (12.9-16.9); Immature Granulocytes % 0.2 % (0-4); Lymphocytes % 16.4 %; Mean Corpuscular HGB Conc 32.9 g/dL (31.6-35.5); Mean Corpuscular Hemoglobin 28.7 pg (28.0-33.3); Mean Corpuscular Volume 87.1 fL (83.0-100.0); Monocytes # 0.6 K/mcL (0.0-1.3); Monocytes % 10.7 %; Neutrophils # 4.1 K/mcL (1.6-8.9); Platelet Count 241 K/mcL (140-400); Red Blood Count 3.94 M/mcL (4.19-5.50); Red Cell Distribution Width 13.3 % (11.5-14.5); Segmented Neutrophils % 68.9 %; White Blood Count 5.9 K/mcL (4.3-11.1)
[2022-06-11 02:30] LABS: BUN/Creatinine Ratio 11 (6-26); Blood Urea Nitrogen 8 mg/dL (6-20); Calcium 8.2 mg/dL (8.6-10.3); Carbon Dioxide 22 mEq/L (23-29); Chloride 107 mEq/L (98-107); Glucose 159 mg/dL (70-105); Osmolality,Calculated 290 (280-300); Potassium 3.1 mEq/L (3.5-5.1); Sodium 139 mEq/L (136-145)
[2022-06-11] MEDS: *HR* Enoxaparin 40 MG/0.4 ML SYRINGE SQ SCH (04:19)
[2022-06-11] MEDS: Insulin LISPRO 300 UNITS/3 ML VIAL SUBQ SCH ×5 (07:36→22:08)
[2022-06-11] MEDS: Piperacillin/Tazobactam 3.375 GM in 0.9 % Sodium Chloride Mini Bag 100 ML IVPB SCH (08:34)
[2022-06-11] MEDS: GlipiZIDE 5 MG TABLET PO SCH (08:36)
[2022-06-11] MEDS: *HR* SitaGLIPtin 100 MG TABLET PO SCH (08:36)
[2022-06-11] MEDS: lisinopriL 20 MG TABLET PO SCH (08:36)
[2022-06-11] MEDS: FLUoxetine 20 MG CAPSULE PO SCH (08:36)
[2022-06-11] MEDS ORDERED: DAPTOmycin 750 MG in 0.9 % Sodium Chloride 100 ML IVPB SCH (10:00)
[2022-06-11] MEDS ORDERED: Lidocaine -MPF 1% 5 ML AMPUL INFILT ONE (11:39)
[2022-06-11] MEDS ORDERED: *HR* OxyCODONE Immed Rel 5 MG TABLET PO ONE (11:47)
[2022-06-11] MEDS: amLODIPine 5 MG TABLET PO SCH (15:07)
[2022-06-11] MEDS: *HR* OxyCODONE Immed Rel 5 MG TABLET PO PRN (22:07)
[2022-06-11 22:34] LABS: BUN/Creatinine Ratio 10 (6-26); Blood Urea Nitrogen 8 mg/dL (6-20); Calcium 8.4 mg/dL (8.6-10.3); Carbon Dioxide 27 mEq/L (23-29); Chloride 107 mEq/L (98-107); Glucose 171 mg/dL (70-105); Osmolality,Calculated 294 (280-300); Potassium 2.9 mEq/L (3.5-5.1); Sodium 141 mEq/L (136-145)
[2022-06-11] MEDS ORDERED: Calcium Gluconate 1gm/50mL 1 GM/50 ML BAG IVPB ONE (22:47)
[2022-06-12] MEDS: *HR* Enoxaparin 40 MG/0.4 ML SYRINGE SQ SCH (06:26)
[2022-06-12 07:23] LABS: BUN/Creatinine Ratio 8 (6-26); Blood Urea Nitrogen 6 mg/dL (6-20); Calcium 8.9 mg/dL (8.6-10.3); Carbon Dioxide 29 mEq/L (23-29); Chloride 106 mEq/L (98-107); Glucose 153 mg/dL (70-105); Osmolality,Calculated 293 (280-300); Potassium 3.3 mEq/L (3.5-5.1); Sodium 141 mEq/L (136-145)
[2022-06-12] MEDS: GlipiZIDE 5 MG TABLET PO SCH (07:42)
[2022-06-12] MEDS: FLUoxetine 20 MG CAPSULE PO SCH (07:43)
[2022-06-12] MEDS: *HR* SitaGLIPtin 100 MG TABLET PO SCH (07:43)
[2022-06-12] MEDS: amLODIPine 5 MG TABLET PO SCH (07:43)
[2022-06-12] MEDS: Insulin LISPRO 300 UNITS/3 ML VIAL SUBQ SCH ×4 (07:45→22:51)
[2022-06-12] MEDS: *HR* OxyCODONE Immed Rel 5 MG TABLET PO PRN ×3 (07:54→22:50)
[2022-06-12] MEDS: lisinopriL 20 MG TABLET PO SCH (08:16)
[2022-06-12] MEDS: Vancomycin 1,750 MG/517.5 ML IV.SOLN IVPB SCH ×2 (10:50→18:41)
[2022-06-13] MEDS: Vancomycin 1,750 MG/517.5 ML IV.SOLN IVPB SCH ×3 (03:12→18:35)
[2022-06-13 03:58] LABS: BUN/Creatinine Ratio 14 (6-26); Blood Urea Nitrogen 10 mg/dL (6-20); C-Reactive Protein 19 mg/L (Less than 10); Calcium 8.6 mg/dL (8.6-10.3); Carbon Dioxide 29 mEq/L (23-29); Chloride 109 mEq/L (98-107); Glucose 112 mg/dL (70-105); Osmolality,Calculated 298 (280-300); Potassium 3.6 mEq/L (3.5-5.1); Sodium 144 mEq/L (136-145)
[2022-06-13] MEDS: *HR* Enoxaparin 40 MG/0.4 ML SYRINGE SQ SCH (06:54)
[2022-06-13] MEDS: GlipiZIDE 5 MG TABLET PO SCH (08:21)
[2022-06-13] MEDS: lisinopriL 20 MG TABLET PO SCH (08:21)
[2022-06-13] MEDS: *HR* SitaGLIPtin 100 MG TABLET PO SCH (08:21)
[2022-06-13] MEDS: FLUoxetine 20 MG CAPSULE PO SCH (08:21)
[2022-06-13] MEDS: amLODIPine 5 MG TABLET PO SCH (08:21)
[2022-06-13] MEDS: *HR* OxyCODONE Immed Rel 5 MG TABLET PO PRN ×2 (08:22→16:38)
[2022-06-13] MEDS: Insulin LISPRO 300 UNITS/3 ML VIAL SUBQ SCH ×3 (08:22→16:28)
[2022-06-13 16:10] VITALS: O2SAT 96
[2022-06-13 19:02] VITALS: BP 171/91; PULSE 74; TEMP 97.9
== END 2022-06-13 22:11 | disposition home health service (06) | DRG 853 ==
LOC: ICNU 17:20 → EMEROOARM 17:20 → ICNU 21:50 → SUATTDRO 06-06 12:20 → 2ANU 06-07 11:43
PROVIDERS: ADMIT Internal Medicine; ATTEND Internal Medicine